=== PATIENT | female | born 1950 | race Caucasian/White ===

== ENCOUNTER 2020-06-28 12:53 | Outpatient (REF) | payer MEDICARE, SELFPAY ==
--- NOTE | 2020-06-28 | MM_ITS ---
EXAMINATION: BONE DENSITOMETRY CLINICAL INDICATION: Encounter for screening for osteoporosis. COMPARISON: Previous BD dated 06/21/2018 and baseline BD dated 12/06/2001. TECHNIQUE: Using a [employer] DXA System (software version: 13.1) manufactured by [employer], dual-energy x-ray absorptiometry was performed of the lumbar spine and left hip. The images are of good technical quality. Summary results are attached. FINDINGS: AP SPINE L1-L4: Current: BMD 0.977 g/cm2, Z-score -0.6, T-score -1.7, osteopenia, 6.0% increase from previous, 21.2% increase from baseline (<5% change is not significant). Prior: BMD 0.922 g/cm2. Baseline: BMD 0.806 g/cm2. LEFT FEMUR, NECK: Current: BMD 0.685 g/cm2, Z-score -1.2, T-score -2.5, osteoporosis. Prior: BMD 0.729 g/cm2. Baseline: BMD 0.719 g/cm2. LEFT FEMUR, TOTAL: Current: BMD 0.692 g/cm2, Z-score -1.5, T-score -2.5, osteoporosis, 11.2% decrease from previous, 5.1% decrease from baseline (<5% change is not significant). Prior: BMD 0.779 g/cm2. Baseline: BMD 0.729 g/cm2. IDENTIFIED RISK FACTORS: Parental hip fracture. Height loss. History of adult fracture. HISTORY OF FRACTURE: Clavicle. MEDICATIONS: Calcium or multivitamin. Vitamin D. MM/XR DEXA axial skeleton IMPRESSION: 1. DIAGNOSIS: Osteoporosis based on the lowest T-score value of -2.5 in the femoral neck and total femur applying World Health Organization criteria. 2. 10-YEAR FRACTURE RISK PREDICTION, FRAX: Major osteoporotic fracture (clinical spine, forearm, hip or shoulder) 33.9%. Hip fracture 9.8%. 3. Treatment Recommendations: NOF guidelines recommend consideration for treatment in postmenopausal women and men age 50 and older presenting with the following: -A hip or vertebral (clinical or morphometric) fracture. -T-score less than or equal to -2.5 at the femoral neck or spine after appropriate evaluation to exclude secondary causes. -Low bone mass at the hip or spine and a 10-year fracture probability by FRAX of greater than or equal to 3% for hip fracture or greater than or equal to 20% for major osteoporotic fracture based on the [place] adapted WHO algorithm. 4. Other Recommendations: All treatment decisions require clinical judgment and consideration of individual patient factors, including patient preferences, comorbidities, previous drug use, risk factors not captured in the FRAX model (e.g. frailty, falls, vitamin D deficiency, increased bone turnover, interval significant decline in bone density) and possible under or overestimation of fracture risk by FRAX. Additional medical evaluation for secondary cause of low bone mineral density may be appropriate. FUTURE SCAN RECOMMENDATION: People with diagnosed cases of osteoporosis or at high risk for fracture should have regular bone mineral density tests. For patients eligible for Medicare, routine testing is allowed once every 2 years. The testing frequency can be increased to one year for patients who have rapidly progressing disease, those who are receiving or discontinuing medical therapy to restore bone mass, or have additional risk factors.
== END 2020-06-28 12:54 | disposition home or self-care (01) ==
LOC: HO.MAMMO 12:53
PROVIDERS: PCP Internal Medicine; Visit Provider Internal Medicine
DX: M81.0 Age-related osteoporosis without current pathological fracture (principal)
CPT/HCPCS: 77080

== ENCOUNTER 2022-03-05 11:14 | Emergency (ER) | payer MEDICARE, SELFPAY ==
--- NOTE | ~2022-03-05 | MR_ITS ---
EXAMINATION: MR BRAIN WITHOUT CONTRAST CLINICAL INFORMATION: Woke with dizziness and nausea and vomiting. Question cerebellar stroke. COMPARISON: Head CT 03/05/2022. TECHNIQUE: Multiplanar, multisequence imaging of the brain was performed without intravenous contrast. FINDINGS: There is no acute infarction, mass, hemorrhage, or extra-axial collection. The ventricles, sulci, and basilar cisterns are normal in size and configuration. A few minimal nonspecific foci of T2/FLAIR hyperintensity are seen in the cerebral white matter. The flow voids of the major intracranial arteries appear intact. The bones and extracranial soft tissues are unremarkable. MR/MR head/brain wo con IMPRESSION: No acute infarct, mass lesion, intracranial hemorrhage, or evidence of hydrocephalus.
--- NOTE | ~2022-03-05 | CT_ITS ---
EXAMINATION: CTA OF THE HEAD AND NECK WITH CONTRAST CT SCAN OF THE HEAD WITHOUT CONTRAST CLINICAL INFORMATION: Dizziness. Question cerebellar stroke. COMPARISON: None. TECHNIQUE: Noncontrast imaging of the head acquired. Test bolus sequences followed by intravenous administration 70 mL of Omnipaque 350. Helical imaging was performed in the axial plane from the mediastinum to the skull vertex. Delayed postcontrast imaging of the head was also performed. The data was processed at the surgical scrub technologist's workstation for generation of MIP sequences. Three-dimensional volume rendered reformatted images were also generated at an offline 3-D workstation. Stenoses are assessed in accordance with NASCET criteria unless otherwise indicated. This CT examination was performed using dose optimization techniques as appropriate, variously including the following: *Automated exposure control *Adjustment of mA and/or kV according to patient size (this includes techniques or standardized protocols for targeted exams where dose is matched to indication/reason for exam; i.e. extremities or head) *Use of iterative reconstruction technique DLP: 2322 mGy-cm. FINDINGS: CT head: There is no evidence of acute intracranial hemorrhage or territorial infarction. There is no loss of painter to white matter differentiation. No abnormal mass effect or midline shift is seen. No extra-axial fluid collections are identified. There is no abnormal enhancement. The ventricles are normal in size. There is no abnormal attenuation within the brain parenchyma. The osseous structures and soft tissues are normal. The mastoid air cells and visualized portions of the paranasal sinuses are well aerated. CTA neck: The imaged aortic arch and origins of the great vessels are normal. The common carotid arteries are widely patent. The carotid bifurcations are normal. The cervical internal carotid arteries are patent with a mildly beaded appearance, possibly due to underlying fibromuscular dysplasia. The vertebral arteries opacify normally and are of normal caliber. Small enhancing 5 mm nodule visible in the right thyroid lobe. Moderate spondylosis with disc space narrowing and endplate spurring noted at the C5-C6 level. The imaged portions of the lungs are clear. CTA head: The intradural vertebral arteries and basilar artery are normal. The posterior cerebral arteries are widely patent. The internal carotid arteries are of normal caliber. The HANNAH and MCA vascular complexes bilaterally are normal. The venous sinuses opacify normally. CT/CT angio head neck stroke IMPRESSION: Normal CT angiogram of the head. Mildly beaded appearance of the cervical internal carotid arteries which may reflect underlying fibromuscular dysplasia. No vascular occlusion or significant stenosis. No dissection visible. No acute intracranial process. No abnormal enhancement. Venous sinuses opacify normally. Nonspecific 5 mm enhancing nodule in the right thyroid lobe which could be further evaluated with a nonemergent targeted sonographic study. Moderate spondylosis at the C5-C6 level. Exuberant right-sided facet arthropathy at C4-C5 with severe right foraminal narrowing. Imaging findings reported to RACHELE Saldana at 12:50 PM on 03/05/2022.
--- NOTE | ~2022-03-05 | CT_ITS ---
EXAMINATION: CT HEAD WITHOUT CONTRAST (STROKE PROTOCOL) CLINICAL INFORMATION: Stroke protocol. Sudden onset dizziness, nausea and vomiting. COMPARISON: None TECHNIQUE: Contiguous axial imaging was performed from the skull base to vertex without intravenous administration of contrast. This CT examination was performed using dose optimization techniques as appropriate, variously including the following: *Automated exposure control *Adjustment of mA and/or kV according to patient size (this includes techniques or standardized protocols for targeted exams where dose is matched to indication/reason for exam; i.e. extremities or head) *Use of iterative reconstruction technique DLP: 746.41 mGy-cm FINDINGS: The brain parenchyma has normal attenuation. The painter-white matter differentiation is well preserved. No evidence of an acute major vascular territory infarction. No intracranial hemorrhage, extra-axial fluid collection, focal mass effect or midline shift. The ventricles have normal size and configuration; no hydrocephalus. The brainstem and cerebellum have a normal appearance. The cerebellar tonsils are in normal position. The calvarium is intact. The visualized paranasal sinuses, mastoid air cells and middle ear cavities are well aerated. The orbits and globes are unremarkable. The temporomandibular joints are normal. CT/CT head for stroke IMPRESSION: No acute intracranial pathology. This critical result was discussed with RACHELE Alexander, at 12:05 PM on 03/05/2022. It was ascertained that the content and urgency of the report was understood at the time of direct communication.
[2022-03-05 11:26] VITALS: BP 117/53; PULSE 74
--- NOTE | 2022-03-05 11:34 | ECG_ITS ---
Test Reason : STROKEALERT Blood Pressure : / mmHG Vent. Rate : 067 BPM Atrial Rate : 067 BPM P-R Int : 186 ms QRS Dur : 064 ms QT Int : 404 ms P-R-T Axes : 047 -09 022 degrees QTc Int : 426 ms Normal sinus rhythm Minimal voltage criteria for LVH, may be normal variant ( R in aVL ) Borderline ECG When compared with ECG of 14-SEP-2003 12:17, No significant change was found Referred By: Coco Saldana Electronically Signed By:MADELIN HANSEN MD
--- NOTE | 2022-03-05 11:41 | ED.DIZZY ---
HPI - Dizziness General Chief Complaint: Nausea/Vomiting/Diarrhea Stated Complaint: Nausea,vomiting,dizziness Time Seen by Provider: 03/05/22 11:28 Source: patient and EMS Mode of arrival: EMS Limitations: no limitations History of Present Illness HPI Narrative: 71-year-old female with a past medical history of osteoporosis presenting to the ED via EMS with complaints of sudden onset of dizziness with associated nausea vomiting that started around 9:30-9:40am when she woke up this morning. She reports that she woke up at 09:30 and she hit the snooze button and at 09:40 when she went to turn over to hit the snooze plan for a 2nd time she felt very dizzy with associated nausea vomiting. She reports that room feels like it is going ?a 1000 mph?. She feels like everything is spinning around her. The towel over her eyes helps to light sensitivity. She reports associated generalized weakness. She reports she has never had these symptoms in the past. She denies a history of vertigo. She denies any recent falls or head trauma, headache, black or bloody emesis, chest pain or shortness of breath, dyspnea on exertion, orthopnea, palpitations, paresthesias, abdominal pain, back pain, joint pain, lower extremity edema or calf tenderness or any other symptoms complaints or concerns at this time. MD elicited complaint: dizziness Onset (ago): hour(s) (Since 09:30-9:40am) Timing: awoke with symptoms and constant Severity: severe Description: room spinning History of similar symptoms: No Exacerbating factors: keeping eyes open and other (Patient reports light sensitivity and turning of her head) Relieving factors: nothing Associated symptoms: nausea, vomiting and other (general weakness) Related Data Previous Rx's Medication Instructions Recorded meclizine 25 mg tablet 50 mg PO BID PRN dizziness #14 tabs 03/05/22 ondansetron 4 mg disintegrating 4 mg PO Q6H PRN nausea and 03/05/22 tablet vomiting #14 tabs Allergies Allergy/AdvReac Type Severity Reaction Status Date / Time No Known Allergies Allergy Unverified 05/13/20 15:06 [No Known Allergies*] Review of Systems Review of Systems: Constitutional : No Fever, No Chills, No Night Sweats, No Fatigue, No Malaise ENT/Mouth : No Ear Pain, No Nasal Congestion, No Sinus Pain, No sore throat, No Rhinorrhea Eyes: No Eye Pain, No Swelling, No Redness, No Foreign Body, No Discharge, No Vision Changes Cardiovascular : No Chest Pain, No SOB, No Dyspnea on Exertion, No Orthopnea, No Palpitations Respiratory : No Cough, No Sputum, No Wheezing, No Dyspnea Gastrointestinal : + Nausea, + Vomiting, No Diarrhea, No Constipation, No abdominal Pain, No Hematochezia, No Melena Genitourinary : No Dysuria, No Urinary Frequency, No Urinary Incontinence, No Urgency, No Flank Pain Musculoskeletal : No joint pain, No Myalgias Skin : No lacerations Neuro : + dizziness with general weakness, No Focal weakness, No Numbness, No Paresthesias, No Loss of Consciousness, No Headache Yes all other systems are reviewed and are negative [facility] Past Medical History Attestation statement: The following information was validated with the patient. Source: nursing notes reviewed Social History Social History Patient Tobacco Use Status: Never used Tobacco Use of substances other than those prescribed or required for medical reasons: No Advance Directives: Yes Advance Directives Information Provided: No Advance Directives on File: No Physical Exam Vital Signs: Vital Signs: Last Vital Signs Temp 98.4 F 03/05/22 15:19 Pulse 70 03/05/22 15:19 Resp 18 03/05/22 15:19 BP 156/61 H 03/05/22 15:19 Pulse Ox 100 03/05/22 15:19 O2 Del Method 03/05/22 15:19 BMI result Body Mass Index 34.0 Vital signs have been reviewed as normal and appeared to be correct. Blood pressure normal. Heart rate normal. Respiration rate normal. Temperature normal. Oxygen saturation normal. Appearance: Alert. Oriented X3. No acute distress. Head: Normal external exam. Normocephalic. Atraumatic. Able to rotate head bilaterally. Eyes: PERRLA. EOMI. No nystagmus noted. Conjunctiva and sclera normal. Eyelids normal. Corneal reflex normal. ENT: EAC normal. TM's Normal. Hearing normal. Pharynx normal. Uvula midline. tongue midline. Moist mucous membranes. No trismus noted. No drooling noted. No muffled voice noted. Patient noted to have bilateral right-sided nystagmus. Neck: Normal inspection. Neck supple. FROM. No adenopathy. Trachea midline. Thyroid Normal. No meningeal signs. No neck mass noted. CVS: Normal heart rate and rhythm. Heart sound normal. No murmurs noted. Pulses normal throughout. Respiratory: No respiratory distress. Painless inspiration. Breath sounds normal. No wheezes/rales/rhonchi noted. Chest nontender. No accessory muscle usage noted or decreased air movement noted. Abdomen: Soft and nontender. Bowel sounds normal in all 4 quadrants. No distention noted. No organomegaly noted. No visible injury noted. Back: Full range of motion noted. Skin: Skin warm and dry. Normal skin color. Normal skin turgor. No rashes/lesions/lacerations noted. Extremities: Extremities exhibit normal range of motion. Extremities nontender. Able to shrug shoulders bilaterally and keep up against resistance. Neuro: Oriented X 3. No motor deficit. No sensory deficit. Reflexes normal. Moving all extremities. No focal motor deficits. Cranial nerves II-XI intact bilaterally. Facial strength normal. Normal cognition. Speech normal. Strength 5/5 throughout. No pronator drift. No tremor noted. No fasciculations noted. No rigidity noted. Muscle tone normal throughout. No asterixis noted. [id number] test normal. Heel to bernardo test normal. Rapid alternating movement upper extremity normal. Rapid alternating movement lower extremity normal. Hand drop from overhead Misses face. NIHSS score 0. NIH Stroke Scale Internal: Initial- Upon Arrival Time: 11:35 Level of Consciousness: Alert Level of Consciousness Questions: Answers both questions correctly Level of Consciousness Commands: Performs both tasks correctly Best Gaze: Normal Visual: No visual loss Facial Palsy: Normal Motor Arm (Right): No drift Motor Arm (Left): No drift Motor Leg (Right): No drift Motor Leg (Left): No drift Limb Ataxia: Absent Sensory: Normal Best Language: No aphasia Dysarthia: Normal Extinction and Inattention: No abnormality Score: 0 Course Course Course Narrative: 11:35am - 71-year-old female c PMHx of osteoporosis presenting to the ED via EMS c complaints of sudden onset of dizziness c associated nausea vomiting that started around 9:30-9:40am when she woke up this morning. She reports that she woke up at 09:30 and she hit the snooze button and at 09:40 when she went to turn over to hit the snooze plan for a 2nd time she felt very dizzy with associated nausea vomiting. She reports that room feels like it is going ?a 1000 mph?. She feels like everything is spinning around her. The towel over her eyes helps to light sensitivity. She reports associated generalized weakness. She reports she has never had these symptoms in the past. She denies a history of vertigo. On exam pt is noted to be holding a towel over her eyes reports the room is spinning and she just wants to vomit although she is noted to have horizontal right-sided nystagmus to bilateral eyes. Otherwise negative Skew Test. Normal [id number] test. No pronator drift noted. No facial weakness. No extremity weakness noted. Patient is not a tPA candidate as she woke up with the symptoms and at this time there is no disabling symptoms. Plan: A line was placed patient was given 4 mg of Zofran and she will be going in for stroke protocol for CT scan of brain, CTA of head and neck with IV contrast, labs. Dr. Madsen at bedside agreeable with this plan and also examined patient. He also recommended ordering an MRI of brain without contrast for possible cerebellum stroke as well we will re-evaluate. Reevaluation(s) Reevaluation #1: 12:05 - CT head without contrast negative for any acute processes at this time. 12:52pm - CTA head/neck revealed chronic changes no acute processes noted. Awaiting labs at this time. 13:00pm - I was called from the MRI room and they reported that the MRIs down at this time they called [facility] to have it fix although they are unsure when it will be back up and running will continue to monitor patient's or she can have an MRI. Apparently the patient was a hard stick and the nurse at the try multiple times to obtain the labs. Therefore she sent in a PCT, PCT obtain labs and they are now arriving at this time. Reevaluation #2: - MRI of brain without contrast negative for acute infarct/mass lesions/intracranial hemorrhage or evidence of hydrocephalus at this time. Patient was able to ambulate to the bathroom without any difficulty. She reports she feels much better with the nausea medication the meclizine. Therefore patient most likely vertigo. Will DC home with medication for vertigo and instructions follow-up with PCP and to return if any new or worsening symptoms. Patient has been at bedside understand agree this plan. Time: 15:36 [facility] - Dizziness Medical Records Attestation: I reviewed the patient's medical records. Lab Data Attestation: I reviewed the patient's lab results. Result diagrams: 03/05/22 13:08 03/05/22 13:08 Labs: Lab Results 03/05/22 03/05/22 03/05/22 Range/Units 13:07 13:08 13:08 WBC 9.6 (4.8-10.8) X10*3/uL RBC 4.22 (4.20-5.50) X10*6/uL Hgb 12.7 (12.0-16.0) g/dl Hct 38.2 (37.0-47.0) % MCV 90.5 (80.0-98.0) fL MCH 30.1 (27.0-33.0) pg MCHC 33.2 (31.0-35.0) g/dl RDW 13.9 (11.0-16.0) % Plt Count 163 (160-400) X10*3/uL MPV 9.3 L (9.4-12.3) fL Immature Gran % (Auto) 0.7 H (0.0-0.4) % Neut % (Auto) 80.0 H (45-73) % Lymph % (Auto) 13.4 L (20-40) % Craig % (Auto) 5.3 (2-11) % Eos % (Auto) 0.3 (0-4) % Baso % (Auto) 0.3 (0-2) % Lymph # (Auto) 1.3 (1.2-4.9) X10*3/uL Craig # (Auto) 0.5 (0.1-1.2) X10*3/uL Eos # (Auto) 0.0 (0.0-0.4) X10*3/uL Baso # (Auto) 0.0 (0.0-0.2) X10*3/uL Abs Immat Gran (auto) 0.07 H (0.00-0.03) X10*3/uL Absolute Neuts (auto) 7.7 (2.0-8.3) x10*3/uL Absolute Nucleated RBC 0.000 (0.0-0.012) X10*3/uL Nucleated RBC % (auto) 0.0 (0.0-0.2) /100WBC PT (10.0-13.1) SEC INR (0.9-1.1) APTT (24.1-38.0) SEC Sodium 138 (135-145) mmol/L Potassium 3.9 (3.3-5.1) mmol/L Chloride 107 (96-108) mmol/L Carbon Dioxide 22 (22-29) mmol/L Anion Gap 13 (12-20) BUN 19 H (9-16) mg/dL Creatinine 0.90 (0.5-1.4) mg/dL Estim Creat Clear Calc 56.3 Estimated GFR > 60 Random Glucose 132 H (60-115) mg/dL Calcium 8.6 (8.4-10.2) mg/dL Magnesium 1.7 (1.6-2.6) mg/dL Total Bilirubin 0.7 (0.0-1.0) mg/dL Direct Bilirubin 0.3 (0.0-0.5) mg/dL AST 23 (5-31) U/L ALT 22 (0-31) U/L Alkaline Phosphatase 95 (39-117) U/L Total Creatine Kinase 62 (26-140) U/L Troponin I High Sens < 3.5 (<3.5-17.0) ng/L Total Protein 6.3 L (6.5-8.0) g/dL Albumin 3.9 (3.5-5.0) g/dL Urine Color Urine Appearance Urine pH (5.0-8.0) Ur Specific [place] (1.005-1.025) Urine Protein (NEG-TRACE) MG/DL Urine Glucose (UA) (NEG) MG/DL Urine Ketones (NEG) MG/DL Urine Blood (NEG) Urine Nitrite (NEG) Ur Leukocyte Esterase (NEG) Urine RBC (0) /HPF Urine WBC (0-4) /HPF Ur Squamous Epith Cells /LPF Urine Bacteria /LPF COVID-19 (DAVE) (Negative) COVID-19 Clin Com 03/05/22 03/05/22 03/05/22 Range/Units 13:08 13:54 13:59 WBC (4.8-10.8) X10*3/uL RBC (4.20-5.50) X10*6/uL Hgb (12.0-16.0) g/dl Hct (37.0-47.0) % MCV (80.0-98.0) fL MCH (27.0-33.0) pg MCHC (31.0-35.0) g/dl RDW (11.0-16.0) % Plt Count (160-400) X10*3/uL MPV (9.4-12.3) fL Immature Gran % (Auto) (0.0-0.4) % Neut % (Auto) (45-73) % Lymph % (Auto) (20-40) % Craig % (Auto) (2-11) % Eos % (Auto) (0-4) % Baso % (Auto) (0-2) % Lymph # (Auto) (1.2-4.9) X10*3/uL Craig # (Auto) (0.1-1.2) X10*3/uL Eos # (Auto) (0.0-0.4) X10*3/uL Baso # (Auto) (0.0-0.2) X10*3/uL Abs Immat Gran (auto) (0.00-0.03) X10*3/uL Absolute Neuts (auto) (2.0-8.3) x10*3/uL Absolute Nucleated RBC (0.0-0.012) X10*3/uL Nucleated RBC % (auto) (0.0-0.2) /100WBC PT 11.7 (10.0-13.1) SEC INR 1.0 (0.9-1.1) APTT 26.5 (24.1-38.0) SEC Sodium (135-145) mmol/L Potassium (3.3-5.1) mmol/L Chloride (96-108) mmol/L Carbon Dioxide (22-29) mmol/L Anion Gap (12-20) BUN (9-16) mg/dL Creatinine (0.5-1.4) mg/dL Estim Creat Clear Calc Estimated GFR Random Glucose (60-115) mg/dL Calcium (8.4-10.2) mg/dL Magnesium (1.6-2.6) mg/dL Total Bilirubin (0.0-1.0) mg/dL Direct Bilirubin (0.0-0.5) mg/dL AST (5-31) U/L ALT (0-31) U/L Alkaline Phosphatase (39-117) U/L Total Creatine Kinase (26-140) U/L Troponin I High Sens (<3.5-17.0) ng/L Total Protein (6.5-8.0) g/dL Albumin (3.5-5.0) g/dL Urine Color YELLOW Urine Appearance CLEAR Urine pH 7.0 (5.0-8.0) Ur Specific [place] <= 1.005 (1.005-1.025) Urine Protein NEG (NEG-TRACE) MG/DL Urine Glucose (UA) NEG (NEG) MG/DL Urine Ketones NEG (NEG) MG/DL Urine Blood TRACE (NEG) Urine Nitrite NEG (NEG) Ur Leukocyte Esterase NEG (NEG) Urine RBC 1-4 (0) /HPF Urine WBC 0 (0-4) /HPF Ur Squamous Epith Cells TRACE /LPF Urine Bacteria NONE /LPF COVID-19 (DAVE) Negative (Negative) COVID-19 Clin Com See Note Imaging Data CT scan of brain without contrast: Attestation: I personally reviewed and interpreted this imaging study as follows: Radiologist's impression: FINDINGS: The brain parenchyma has normal attenuation. The painter-white matter differentiation is well preserved. No evidence of an acute major vascular territory infarction. No intracranial hemorrhage, extra-axial fluid collection, focal mass effect or midline shift. The ventricles have normal size and configuration; no hydrocephalus. The brainstem and cerebellum have a normal appearance. The cerebellar tonsils are in normal position. The calvarium is intact. The visualized paranasal sinuses, mastoid air cells and middle ear cavities are well aerated. The orbits and globes are unremarkable. The temporomandibular joints are normal. CT/CT head for stroke IMPRESSION: No acute intracranial pathology. ? ? This critical result was discussed with RACHELE Alexander, at 12:05 PM on 03/05/2022. It was ascertained that the content and urgency of the report was understood at the time of direct communication. CTA of head/neck: Attestation: I personally reviewed and interpreted this imaging study as follows: Radiologist's impression: FINDINGS: CT head: There is no evidence of acute intracranial hemorrhage or territorial infarction. There is no loss of painter to white matter differentiation. No abnormal mass effect or midline shift is seen. No extra-axial fluid collections are identified. There is no abnormal enhancement. The ventricles are normal in size. There is no abnormal attenuation within the brain parenchyma. The osseous structures and soft tissues are normal. The mastoid air cells and visualized portions of the paranasal sinuses are well aerated. ? CTA neck: The imaged aortic arch and origins of the great vessels are normal. The common carotid arteries are widely patent. The carotid bifurcations are normal. The cervical internal carotid arteries are patent with a mildly beaded appearance, possibly due to underlying fibromuscular dysplasia. The vertebral arteries opacify normally and are of normal caliber. Small enhancing 5 mm nodule visible in the right thyroid lobe. Moderate spondylosis with disc space narrowing and endplate spurring noted at the C5-C6 level. The imaged portions of the lungs are clear. CTA head: The intradural vertebral arteries and basilar artery are normal. The posterior cerebral arteries are widely patent. The internal carotid arteries are of normal caliber. The HANNAH and MCA vascular complexes bilaterally are normal. The venous sinuses opacify normally. CT/CT angio head? neck stroke IMPRESSION: ? Normal CT angiogram of the head. ? Mildly beaded appearance of the cervical internal carotid arteries which may reflect underlying fibromuscular dysplasia. No vascular occlusion or significant stenosis. No dissection visible. ? No acute intracranial process. No abnormal enhancement. Venous sinuses opacify normally. ? Nonspecific 5 mm enhancing nodule in the right thyroid lobe which could be further evaluated with a nonemergent targeted sonographic study. ? Moderate spondylosis at the C5-C6 level. Exuberant right-sided facet arthropathy at C4-C5 with severe right foraminal narrowing. ? Imaging findings reported to RACHELE Saldana at 12:50 PM on 03/05/2022. ? MRI of brain without contrast: Attestation: I personally reviewed and interpreted this imaging study as follows: Radiologist's impression: FINDINGS: There is no acute infarction, mass, hemorrhage, or extra-axial collection.? The ventricles, sulci, and basilar cisterns are normal in size and configuration. A few minimal nonspecific foci of T2/FLAIR hyperintensity are seen in the cerebral white matter. The flow voids of the major intracranial arteries appear intact. The bones and extracranial soft tissues are unremarkable. MR/MR head/brain wo con IMPRESSION: No acute infarct, mass lesion, intracranial hemorrhage, or evidence of hydrocephalus. ECG Data Attestation: I personally reviewed and interpreted this ECG as follows: ECG interpretation date: 03/05/22 ECG interpretation time: 15:18 Interpretation: Normal sinus rhythm with ventricular rate of 67 with LVH otherwise no acute ischemic change are noted. Similar compared to prior EKG 02/13/2004 Critical Care Time Critical Care Time Critical Care Time: Yes Total Critical Care Time: 60 Attestation: I personally attest to this time spent taking care of the patient Discharge Plan Discharge Clinical Impression: Nausea & vomiting, Dizziness, Vertigo Patient Disposition: Home, Self-Care Instructions: Vertigo (ED) Prescriptions: New ondansetron 4 mg tablet,disintegrating 4 mg PO Q6H PRN (Reason: nausea and vomiting) Qty: 14 0RF meclizine 25 mg tablet 50 mg PO BID PRN (Reason: dizziness) Qty: 14 0RF Referrals: Alfredo Kearns MD [Primary Care Provider] - 2 days Print Language: Cameroonian
[2022-03-05 11:56] VITALS: BMI 34.0
[2022-03-05] MEDS: ondansetron HCL 4 MG/2 ML VIAL IVPUSH (12:00)
[2022-03-05] MEDS: iohexoL 350 MG/ML 100 ML INFUS..BTL IV (12:00)
[2022-03-05] MEDS: Metoclopramide HCl 10 MG/2 ML VIAL IVPUSH (12:21)
[2022-03-05] MEDS: diazePAM 10 MG/2 ML CARTRIDGE 2.5 MG IVPUSH (12:35)
[2022-03-05] MEDS: 0.9 % Sodium Chloride 1,000 ML 999 ML IV (12:45)
[2022-03-05 13:16] LABS: MANUAL DIFF FLAG NO
[2022-03-05 13:18] LABS: Basophils Percent Auto 0.3 % (0-2); Eosinophils Percent Auto 0.3 % (0-4); Hematocrit 38.2 % (37.0-47.0); Hemoglobin 12.7 g/dl (12.0-16.0); Imm Gran Abs Auto 0.07 X10*3/uL (0.00-0.03); Imm Gran Pct Auto 0.7 % (0.0-0.4); Lymphocytes Absolute Auto 1.3 X10*3/uL (1.2-4.9); Lymphocytes Percent Auto 13.4 % (20-40); Mean Corpuscular HGB Conc 33.2 g/dl (31.0-35.0); Mean Corpuscular Hemoglobin 30.1 pg (27.0-33.0); Mean Corpuscular Volume 90.5 fL (80.0-98.0); Mean Platelet Volume 9.3 fL (9.4-12.3); Monocytes Absolute Auto 0.5 X10*3/uL (0.1-1.2); Monocytes Percent Auto 5.3 % (2-11); Neutrophils Absolute Auto 7.7 x10*3/uL (2.0-8.3); Platelet Count 163 X10*3/uL (160-400); Red Blood Count 4.22 X10*6/uL (4.20-5.50); Red Cell Distribution Width 13.9 % (11.0-16.0); White Blood Count 9.6 X10*3/uL (4.8-10.8)
[2022-03-05 13:23] LABS: Prothrombin Time 11.7 SEC (10.0-13.1)
[2022-03-05 13:25] LABS: Partial Thromboplastin Time 26.5 SEC (24.1-38.0)
[2022-03-05 13:35] LABS: Alanine Aminotransferase 22 U/L (0-31); Albumin Level 3.9 g/dL (3.5-5.0); Alkaline Phosphatase 95 U/L (39-117); Anion Gap 13 (12-20); Aspartate Amino Transferase 23 U/L (5-31); Bilirubin Direct 0.3 mg/dL (0.0-0.5); Bilirubin Total 0.7 mg/dL (0.0-1.0); Blood Urea Nitrogen 19 mg/dL (9-16); Calcium 8.6 mg/dL (8.4-10.2); Carbon Dioxide 22 mmol/L (22-29); Chloride 107 mmol/L (96-108); Creatinine Clr Calc Pharmacy 56.3; Estimated Glomerular Filt Rate > 60; Glucose Random 132 mg/dL (60-115); Magnesium 1.7 mg/dL (1.6-2.6); Potassium 3.9 mmol/L (3.3-5.1); Sodium 138 mmol/L (135-145); Total Protein 6.3 g/dL (6.5-8.0)
[2022-03-05 13:40] LABS: Troponin-I High Sensitivity < 3.5 ng/L (<3.5-17.0)
[2022-03-05 13:41] VITALS: BP 135/62; PULSE 66; RESP 18; TEMP 36.9; O2SAT 100; BMI 34.0
[2022-03-05 13:47] LABS: Stroke Lab Use COMPLETE
[2022-03-05 14:05] LABS: Appearance Urine CLEAR; Color Urine YELLOW; Glucose Urine UA NEG (NEG); Leukocyte Esterase Urine NEG (NEG); Nitrite Urine NEG (NEG); Specific Gravity - Urine <= 1.005 (1.005-1.025); UACC Culture Trigger NO; Urine Blood TRACE (NEG); Urine Ketones NEG (NEG); Urine Protein NEG (NEG-TRACE)
[2022-03-05 14:14] LABS: Squamous Epithelial Cell Urine TRACE /LPF; WBC Urine 0 /HPF (0-4)
[2022-03-05 14:20] LABS: COVID-19 Test Negative (Negative); IDNOW Serial# 16C4AD1C
[2022-03-05] MEDS: Meclizine HCl 25 MG TABLET 50 MG PO (14:21)
[2022-03-05 15:19] VITALS: BP 156/61; PULSE 70; RESP 18; TEMP 36.9; O2SAT 100
== END 2022-03-05 16:06 | disposition home or self-care (01) ==
PROVIDERS: Physician Assistant Medical; Emergency Provider Emergency Medicine; PCP Internal Medicine
DX: R42 Dizziness and giddiness (principal); R11.2 Nausea with vomiting, unspecified; R53.1 Weakness; H55.00 Unspecified nystagmus; Z20.822 Contact with and (suspected) exposure to COVID-19
CPT/HCPCS: 36415; 70450; 70496; 70498; 70551; 80048; 80076; 81001; 82550; 83735; 84484; 85025; 85610; 85730; 87635; 93005; 96361; 96374; 96375; 99285; J2405; J2765; J3360; Q9967

== ENCOUNTER 2022-03-10 10:30 | Outpatient (REF) | payer MEDICARE, SELFPAY ==
[2022-03-10 11:00] LABS: MANUAL DIFF FLAG NO
[2022-03-10 12:21] LABS: Basophils Absolute Auto 0.1 X10*3/uL (0.0-0.2); Basophils Percent Auto 0.8 % (0-2); Eosinophils Absolute Auto 0.1 X10*3/uL (0.0-0.4); Hematocrit 43.3 % (37.0-47.0); Imm Gran Abs Auto 0.02 X10*3/uL (0.00-0.03); Imm Gran Pct Auto 0.3 % (0.0-0.4); Lymphocytes Absolute Auto 2.5 X10*3/uL (1.2-4.9); Lymphocytes Percent Auto 39.1 % (20-40); Mean Corpuscular HGB Conc 32.3 g/dl (31.0-35.0); Mean Corpuscular Volume 92.7 fL (80.0-98.0); Mean Platelet Volume 10.1 fL (9.4-12.3); Monocytes Absolute Auto 0.6 X10*3/uL (0.1-1.2); Monocytes Percent Auto 9.4 % (2-11); Neutrophils Absolute Auto 3.2 x10*3/uL (2.0-8.3); Neutrophils Percent Auto 48.4 % (45-73); Platelet Count 186 X10*3/uL (160-400); Red Blood Count 4.67 X10*6/uL (4.20-5.50); White Blood Count 6.5 X10*3/uL (4.8-10.8)
[2022-03-10 12:46] LABS: Alanine Aminotransferase 23 U/L (0-31); Albumin Level 4.3 g/dL (3.5-5.0); Alkaline Phosphatase 106 U/L (39-117); Anion Gap 16 (12-20); Aspartate Amino Transferase 24 U/L (5-31); Bilirubin Total 0.6 mg/dL (0.0-1.0); Blood Urea Nitrogen 20 mg/dL (9-16); Calcium 8.9 mg/dL (8.4-10.2); Carbon Dioxide 22 mmol/L (22-29); Chloride 105 mmol/L (96-108); Cholesterol 193 mg/dL; Estimated Glomerular Filt Rate 60; Glucose Fasting 87 mg/dL (60-99); HDL Cholesterol 58 mg/dL; LDL Cholesterol Calculated 110 mg/dl; Potassium 4.6 mmol/L (3.3-5.1); Sodium 138 mmol/L (135-145); Total Protein 7.3 g/dL (6.5-8.0); Triglycerides 128 mg/dL
[2022-03-10 13:02] LABS: Appearance Urine CLEAR; Color Urine YELLOW; Glucose Urine UA NEG (NEG); Leukocyte Esterase Urine NEG (NEG); Nitrite Urine NEG (NEG); PH 6.5 (5.0-8.0); Urine Blood TRACE (NEG); Urine Ketones NEG (NEG); Urine Protein NEG (NEG-TRACE)
[2022-03-10 13:07] LABS: Vitamin D 25-OH Total 55.1 ng/mL (>30)
[2022-03-10 13:44] LABS: Renal Epithelial Cells Urine 1+ /LPF; Squamous Epithelial Cell Urine 3+ /LPF; WBC Urine 0-2 /HPF (0-4)
== END 2022-03-10 10:31 | disposition home or self-care (01) ==
LOC: HO.LAB 10:30
PROVIDERS: PCP Internal Medicine; Visit Provider Internal Medicine
DX: E78.00 Pure hypercholesterolemia, unspecified (principal); R31.9 Hematuria, unspecified; D72.820 Lymphocytosis (symptomatic); E55.9 Vitamin D deficiency, unspecified
CPT/HCPCS: 36415; 80053; 80061; 81001; 81003; 82306; 85025

== ENCOUNTER 2022-04-21 15:40 | Outpatient (REF) | payer MEDICARE, SELFPAY ==
--- NOTE | ~2022-04-21 | US_ITS ---
EXAMINATION: US THYROID CLINICAL INFORMATION: Thyroid nodule. COMPARISON: None TECHNIQUE: Linear transducer grayscale and color Doppler examination with attention to the region of the thyroid. FINDINGS: SIZE: Measurements of the thyroid lobes and nodules are given in sagittal, anteroposterior and transverse dimensions respectively. Right Thyroid Lobe: 4.3 x 1.0 x 1.4 cm, volume 3.1 mL. Parenchyma: The gland echotexture is heterogeneous. Thyroid vascularity is normal. Left Thyroid Lobe: 3.3 x 0.7 x 1.3 cm, volume 1.6 mL. Parenchyma: The gland echotexture is heterogeneous. Thyroid vascularity is normal. Isthmus: 0.3 cm in maximum AP dimension. Estimated total number of nodules greater than or equal to 1 cm: 0. Community Health Program Coordinator nodules are described as follows: 1. Location: Right mid/inferior. Size: 0.8 x 0.4 x 0.5 cm, volume 0.1 mL. Nodule characteristics: Composition: Solid (2). Echogenicity: Hypoechoic (2). Shape: Not taller than wide (0). Margins: Smooth (0). Echogenic Foci: None (0). ACR TI-RADS total points: 4 ACR TI-RADS category: 4 2. Location: Right mid. Size: 0.3 x 0.2 x 0.3 cm, volume 0.01 mL. Nodule characteristics: Composition: Spongiform (0). ACR TI-RADS total points: 0 ACR TI-RADS category: 1 NODES: No lymphadenopathy is seen in the tissue surrounding the thyroid gland. US/US thyroid IMPRESSION: Heterogeneous which can be seen in the setting of thyroiditis. A 0.8 cm TR 4 right thyroid nodule and a 0.3 cm TR 1 thyroid nodule neither of which meet criteria for follow-up imaging. ACR TI-RADS RECOMMENDATION REFERENCE: Ultrasound-guided fine-needle aspiration, followup ultrasound, no further follow up. * TR1 (0 point) and TR 2 (2 points): No FNA or follow up * TR3 (3 points): FNA if more than or equal to 2.5 cm in maximum dimension, followup ultrasound in 1, 3 and 5 years if 1.5 to 2.4 cm in maximum dimension. * TR4 (4-6 points): FNA if more than or equal to 1.5 cm in maximum dimension, followup ultrasound in 1, 2, 3 and 5 years if 1 to 1.4 cm in maximum dimension. * TR5 (more than or equal to 7 points): FNA if more than or equal to 1 cm in maximum dimension, followup ultrasound every year for 5 years if 0.5 to 0.9 cm in maximum dimension. * TR3, TR4 or TR5 nodules that are below the size threshold for follow up receive no follow up.
== END 2022-04-21 15:41 | disposition home or self-care (01) ==
LOC: HO.US 15:40
PROVIDERS: Visit Provider Internal Medicine
DX: E04.1 Nontoxic single thyroid nodule (principal)
CPT/HCPCS: 76536

== ENCOUNTER 2022-06-30 12:50 | Outpatient (REF) | payer MEDICARE, SELFPAY ==
--- NOTE | ~2022-06-30 | MM_ITS ---
EXAMINATION: BONE DENSITOMETRY CLINICAL INDICATION: Menopause. COMPARISON: Previous BD dated 06/28/2020 and baseline BD dated 12/06/2001. TECHNIQUE: Using a [employer] DXA System (software version: 13.1) manufactured by [employer], dual-energy x-ray absorptiometry was performed of the lumbar spine and left hip. The images are of good technical quality. Summary results are attached. FINDINGS: AP SPINE L1-L4: Current: BMD 1.003 g/cm2, Z-score -0.3, T-score -1.5, osteopenia, 2.7% increase from previous, 24.4% increase from baseline (<5% change is not significant). Prior: BMD 0.977 g/cm2. Baseline: BMD 0.806 g/cm2. LEFT FEMUR, NECK: Current: BMD 0.802 g/cm2, Z-score -0.3, T-score -1.7, osteopenia. Prior: BMD 0.685 g/cm2. Baseline: BMD 0.719 g/cm2. LEFT FEMUR, TOTAL: Current: BMD 0.839 g/cm2, Z-score -0.2, T-score -1.3, osteopenia, 21.2% increase from previous, 15.1% increase from baseline (<5% change is not significant). Prior: BMD 0.692 g/cm2. Baseline: BMD 0.729 g/cm2. IDENTIFIED RISK FACTORS: Menopause, history of fracture (adult). HISTORY OF FRACTURE: Wrist. Clavicle. MEDICATIONS: Bisphosphonates. Calcium supplements or multivitamin, vitamin D. MM/XR DEXA axial skeleton IMPRESSION: 1. DIAGNOSIS: Osteopenia based on the lowest T-score value of -1.7 in the femoral neck applying World Health Organization criteria. 2. 10-YEAR FRACTURE RISK PREDICTION, FRAX: Major osteoporotic fracture (clinical spine, forearm, hip or shoulder) 24.2%. Hip fracture 6.4%. 3. Treatment Recommendations: NOF guidelines recommend consideration for treatment in postmenopausal women and men age 50 and older presenting with the following: -A hip or vertebral (clinical or morphometric) fracture. -T-score less than or equal to -2.5 at the femoral neck or spine after appropriate evaluation to exclude secondary causes. -Low bone mass at the hip or spine and a 10-year fracture probability by FRAX of greater than or equal to 3% for hip fracture or greater than or equal to 20% for major osteoporotic fracture based on the [place] adapted WHO algorithm. 4. Other Recommendations: All treatment decisions require clinical judgment and consideration of individual patient factors, including patient preferences, comorbidities, previous drug use, risk factors not captured in the FRAX model (e.g. frailty, falls, vitamin D deficiency, increased bone turnover, interval significant decline in bone density) and possible under or overestimation of fracture risk by FRAX. Additional medical evaluation for secondary cause of low bone mineral density may be appropriate. FUTURE SCAN RECOMMENDATION: People with diagnosed cases of osteoporosis or at high risk for fracture should have regular bone mineral density tests. For patients eligible for Medicare, routine testing is allowed once every 2 years. The testing frequency can be increased to one year for patients who have rapidly progressing disease, those who are receiving or discontinuing medical therapy to restore bone mass, or have additional risk factors.
== END 2022-06-30 12:51 | disposition home or self-care (01) ==
LOC: HO.MAMMO 12:50
PROVIDERS: PCP Internal Medicine; Visit Provider Internal Medicine Endocrinology, Diabetes & Metabolism
DX: Z13.820 Encounter for screening for osteoporosis (principal); Z78.0 Asymptomatic menopausal state; M81.0 Age-related osteoporosis without current pathological fracture
CPT/HCPCS: 77080

== ENCOUNTER 2022-09-19 10:08 | Outpatient (REF) | payer MEDICARE, SELFPAY ==
[2022-09-19 11:42] LABS: Alanine Aminotransferase 17 U/L (0-31); Albumin Level 4.1 g/dL (3.5-5.0); Alkaline Phosphatase 95 U/L (39-117); Aspartate Amino Transferase 22 U/L (5-31); Bilirubin Total 0.5 mg/dL (0.0-1.0); Cholesterol 153 mg/dL; HDL Cholesterol 51 mg/dL; LDL Cholesterol Calculated 80 mg/dl; Total Protein 6.6 g/dL (6.5-8.0); Triglycerides 113 mg/dL
[2022-09-19 14:08] LABS: Reflex LDLD? No
[2022-09-19 14:19] LABS: Bilirubin Direct 0.2 mg/dL (0.0-0.5)
== END 2022-09-19 10:09 | disposition home or self-care (01) ==
LOC: HO.LAB 10:08
PROVIDERS: PCP Internal Medicine; Visit Provider Internal Medicine
DX: E78.00 Pure hypercholesterolemia, unspecified (principal)
CPT/HCPCS: 36415; 80061; 80076

== ENCOUNTER 2023-03-12 09:59 | Outpatient (REF) | payer MEDICARE, SELFPAY ==
[2023-03-12 10:26] LABS: MANUAL DIFF FLAG NO
[2023-03-12 11:31] LABS: Basophils Percent Auto 0.4 % (0-2); Eosinophils Absolute Auto 0.2 X10*3/uL (0.0-0.4); Eosinophils Percent Auto 2.2 % (0-4); Hemoglobin 13.5 g/dl (12.0-16.0); Imm Gran Abs Auto 0.01 X10*3/uL (0.00-0.03); Imm Gran Pct Auto 0.1 % (0.0-0.4); Lymphocytes Absolute Auto 2.9 X10*3/uL (1.2-4.9); Lymphocytes Percent Auto 42.7 % (20-40); Mean Corpuscular HGB Conc 32.1 g/dl (31.0-35.0); Mean Corpuscular Hemoglobin 29.7 pg (27.0-33.0); Mean Corpuscular Volume 92.5 fL (80.0-98.0); Mean Platelet Volume 9.7 fL (9.4-12.3); Monocytes Absolute Auto 0.6 X10*3/uL (0.1-1.2); Monocytes Percent Auto 9.5 % (2-11); Neutrophils Percent Auto 45.1 % (45-73); Platelet Count 200 X10*3/uL (160-400); Red Blood Count 4.54 X10*6/uL (4.20-5.50); Red Cell Distribution Width 13.6 % (11.0-16.0); White Blood Count 6.7 X10*3/uL (4.8-10.8)
[2023-03-12 11:57] LABS: Appearance Urine Clear; Color Urine Yellow; Glucose Urine UA Negative (Negative); Leukocyte Esterase Urine Trace (Negative); Nitrite Urine Negative (Negative); UMIC TRIGGER UACC YES; Urine Blood Negative (Negative); Urine Ketones Negative (Negative); Urine Protein Negative (Neg-Trace)
[2023-03-12 11:59] LABS: Bacteria Urine Trace (None Seen); Hyaline Casts Urine 0-2 /LPF (0-2); RBC Urine 0-2 /HPF (0-2); WBC Urine 0-5 /HPF (0-5)
[2023-03-12 13:03] LABS: Alanine Aminotransferase 20 U/L (0-31); Albumin Level 4.1 g/dL (3.5-5.0); Alkaline Phosphatase 94 U/L (39-117); Anion Gap 13 (12-20); Aspartate Amino Transferase 21 U/L (5-31); Bilirubin Total 0.6 mg/dL (0.0-1.0); Blood Urea Nitrogen 21 mg/dL (9-16); Calcium 9.8 mg/dL (8.4-10.2); Carbon Dioxide 27 mmol/L (22-29); Chloride 104 mmol/L (96-108); Cholesterol 175 mg/dL; Estimated Glomerular Filt Rate 56; Glucose Random 90 mg/dL (60-115); HDL Cholesterol 53 mg/dL; LDL Cholesterol Calculated 94 mg/dl; Potassium 4.4 mmol/L (3.3-5.1); Sodium 140 mmol/L (135-145); Total Protein 7.1 g/dL (6.5-8.0); Triglycerides 143 mg/dL
[2023-03-12 13:19] LABS: Vitamin D 25-OH Total 62.3 ng/mL (>30)
== END 2023-03-12 10:00 | disposition home or self-care (01) ==
LOC: HO.LAB 09:59
PROVIDERS: PCP Internal Medicine; Visit Provider Internal Medicine
DX: E55.9 Vitamin D deficiency, unspecified (principal); E78.00 Pure hypercholesterolemia, unspecified; I10 Essential (primary) hypertension
CPT/HCPCS: 36415; 80053; 80061; 81001; 82306; 85025

== ENCOUNTER 2023-04-25 13:31 | Outpatient (AMB) | payer MEDICARE, SELFPAY ==
--- NOTE | 2023-04-25 13:34 | A.OFFVIS_ITS ---
Intake Vital Signs 04/25/23 13:35 Height 5 ft 1 in Weight 178 lb BMI 33.6 BP 130/70 Blood Pressure Location Lt brachial Position Sitting Pulse 80 Pulse Source Pulse Oximeter Pulse Oximetry (%) 94 Oxygen Delivery Method Room Air Intake Visit Reasons: Snoring Prototype Engineer Manager Required: No Instrument And Controls Technician: Instrument And Controls Technician offered & declined Accompanied by: Self / Same As Patient Allergies No Known Allergies [No Known Allergies*] Allergy (Unverified 05/13/20 15:06) Medication List - Last Reconciled 04/25/23 by Ankita Obregon LPN aspirin (Adult Low Dose Aspirin) 81 mg PO DAILY atorvastatin 20 mg PO DAILY cholecalciferol (vitamin D3) 25 mcg orally 3x per week; meclizine 50 mg (2 x 25 mg) PO BID PRN multivitamin 1 tab PO DAILY omeprazole 20 mg PO DAILY ondansetron 4 mg PO Q6H PRN HPI Snoring HPI Details Sarah is a very pleasant 73 year old female, never smoker, with underlying hypertension. She was referred by PCP for pulmonary evaluation for possible sleep apnea. Her has noticed snoring that has become more frequent over the past year. She reports sleeping upright prior but has been laying flat more recently. She denies any known history of sleep apnea, PND or excessive daytime fatigue although notes to fall asleep easily at times. She denies any personal history of lung conditions. She reports mother with Sjogren's, personal workup negative. She denies any cardiac conditions. [facility] Social History Patient Tobacco Use Status: Never used Tobacco Review of Systems Const Denies chills, Denies excessive sweating, Denies fever(s), Denies headache(s) and Denies night sweats Eyes Denies dry eyes, Denies irritation and Denies itchy eyes ENT Reports Normal hearing present, Denies headache(s), Denies nasal congestion, Denies nasal discharge, Denies post nasal drip and Denies sore throat Card Denies chest pain, Denies chest pain at rest, Denies chest pain with activity, Denies claudication, Denies leg edema, Denies dyspnea, Denies dyspnea on exertion, Denies orthopnea and Denies paroxysmal nocturnal dyspnea Resp Denies chest congestion, Denies cough, Denies excessive phlegm production, Denies pain on inspiration, Denies pain with cough, Denies dyspnea, Denies dyspnea on exertion, Denies stridor and Denies wheezing Musc Denies myalgias Neuro Reports Normal hearing present and Denies headache(s) Endo Denies excessive sweating Darvin/Lymph Denies lymphadenopathy Aller/Immun Denies itchy eyes, Denies seasonal rhinorrhea and Denies wheezing Physical Exam Vital Signs: Last Vital Signs Pulse 80 04/25/23 13:35 BP 130/70 04/25/23 13:35 Pulse Ox 94 04/25/23 13:35 Oxygen Delivery Method Room Air 04/25/23 13:35 BMI result Body Mass Index 33.6 Const General: cooperative, healthy appearing, comfortable, no acute distress, well developed and alert Nutritional Appearance: obese Orientation/consciousness: patient oriented x3 Limitations: no limitations HEENT Head: Yes normal to inspection, Yes normocephalic and Yes atraumatic Ears: hearing grossly normal bilaterally and external ears normal Eyes General: appearance normal, both eyes and all related structures Eyelids: Yes eyelids normal Sclerae: sclerae normal EOM: EOMs intact bilaterally Neck Neck: Yes normal visual inspection and Yes no lymphadenopathy Lymphatic: no lymphadenopathy noted Chest Chest palpation & inspection: normal inspection of the chest Resp Effort & Inspection: normal respiratory effort, able to speak in complete sentences, no audible wheezes, no cough, no stridor, not tachypneic, no tripod positioning and no use of accessory muscles Auscultation: clear to auscultation bilaterally Cardio Jugular venous distension: no JVD Rate: regular rate Rhythm: regular rhythm Skin Other: warm, dry General skin exam: no rashes or lesions noted Neuro General: patient oriented x3 Cranial nerves: Yes Normal hearing present Cognition (Neuro): normal cognition Gait exam (Neuro): Normal gait present Extrem General: Yes normal to inspection, Yes capillary refill normal, Yes no clubbing, cyanosis or edema and Yes no pedal edema Psych Appearance: grossly normal and well kempt Speech and movement: Normal speech and movement present and Clear speech present Affect: normal affect Attitude: cooperative Thought process: Normal thought process present Thought content: Normal thought content present Insight: Good insight present (Psych) Judgement: Good judgement present (Psych) Assessment & Plan Assessment & Plan (1) Loud snoring: Code(s): R06.83 - Snoring (2) Class 1 obesity with body mass index (BMI) of 33.0 to 33.9 in adult: Code(s): E66.9 - Obesity, unspecified; Z68.33 - Body mass index [BMI] 33.0-33.9, adult Plan PCP referred patient with concerns of obstructive sleep apnea given history of snoring, obesity and underlying hypertension. Will send patient for home sleep study and follow up to review results. All questions were answered and patient is in agreement of plan. Orders: Orders RT home sleep study Today E66.9 - Obesity, unspecified, R06.83 - Snoring, Z68.33 - Body mass index [BMI] 33.0-33.9, adult Coding Level of Care Code New Pt Level 3 (65799) Diagnoses Loud snoring R06.83 Class 1 obesity with body mass index (BMI) of 33.0 to 33.9 in adult E66.9; Z68.33
[2023-04-25 13:35] VITALS: BP 130/70; PULSE 80; O2SAT 94; BMI 33.6
== END 2023-04-25 14:21 | disposition home or self-care (01) ==
PROVIDERS: PCP Internal Medicine; Referring Provider Internal Medicine; Visit Provider Nurse Practitioner Family
DX: R06.83 Snoring (principal); E66.9 Obesity, unspecified; Z68.33 Body mass index [BMI] 33.0-33.9, adult
CPT/HCPCS: 99203

== ENCOUNTER → 2023-04-25 13:31 | Outpatient (BNVA) | payer MEDICARE, SELFPAY | PROVIDERS: PCP Internal Medicine; Visit Provider Nurse Practitioner Family | DX: R06.83 Snoring (principal); E66.9 Obesity, unspecified; Z68.33 Body mass index [BMI] 33.0-33.9, adult | CPT/HCPCS: 99202 ==

== ENCOUNTER → 2023-06-11 13:00 | Outpatient (REF) | payer MEDICARE, SELFPAY | LOC: HO.SL 13:00 | PROVIDERS: PCP Internal Medicine; Visit Provider Nurse Practitioner Family | DX: G47.33 Obstructive sleep apnea (adult) (pediatric) (principal); R06.83 Snoring; E66.9 Obesity, unspecified; Z68.33 Body mass index [BMI] 33.0-33.9, adult | CPT/HCPCS: 95806 ==

== ENCOUNTER → 2023-06-11 13:26 | Outpatient (BNV) | payer MEDICARE, SELFPAY | PROVIDERS: PCP Internal Medicine; Visit Provider Internal Medicine | DX: R06.83 Snoring (principal); E66.9 Obesity, unspecified | CPT/HCPCS: 95806 ==

== ENCOUNTER 2023-06-25 13:49 | Outpatient (AMB) | payer MEDICARE, SELFPAY ==
[2023-06-25 13:59] VITALS: BP 124/68; PULSE 75; O2SAT 98; BMI 33.8
--- NOTE | 2023-06-25 13:59 | A.OFFVIS_ITS ---
Intake Vital Signs 3 06/25/23 13:59 Height 5 ft 1 in Weight 179 lb BMI 33.8 BP 124/68 Blood Pressure Location Rt brachial Position Sitting Pulse 75 Pulse Source Pulse Oximeter Pulse Oximetry (%) 98 Oxygen Delivery Method Room Air Intake Visit Reasons: Snoring f/u Ornamental Metal Worker Required: No Patient Care Coordinator: Patient Care Coordinator offered & declined Accompanied by: Self / Same As Patient Allergies demerol Allergy (Severe, Uncoded 06/25/23 14:11) hives Medication List - Last Reconciled 06/25/23 by Ankita Obregon LPN aspirin (Adult Low Dose Aspirin) 81 mg PO DAILY atorvastatin 20 mg PO DAILY calcium citrate 400 mg PO DAILY cholecalciferol (vitamin D3) 25 mcg orally 3x per week; meclizine 50 mg (2 x 25 mg) PO BID PRN multivitamin 1 tab PO DAILY omega [id number] oil 1,000 mg (120 mg-180 mg) (Fish Oil) 1 cap PO BID omeprazole 20 mg PO DAILY ondansetron 4 mg PO Q6H PRN HPI Snoring f/u 2 HPI0 Details Sarah is a very pleasant 73 year old female, never smoker, with underlying hypertension. Today she presents to review results of home sleep study. She was initially referred as her noticed loud snoring, otherwise denies symptoms such as morning headaches, daytime fatigue or PND. [facility] Social History (Updated 06/25/23 @ 14:07 by Ankita Obregon LPN) Patient Tobacco Use Status: Never used Tobacco Smoked in Last 30 Days: No Review of Systems Const Denies chills, Denies excessive sweating, Denies fever(s), Denies headache(s) and Denies night sweats Eyes Denies dry eyes, Denies irritation and Denies itchy eyes ENT Reports Normal hearing present, Denies headache(s), Denies nasal congestion, Denies nasal discharge, Denies post nasal drip and Denies sore throat Card Denies chest pain, Denies chest pain at rest, Denies chest pain with activity, Denies claudication, Denies leg edema, Denies dyspnea, Denies dyspnea on exertion, Denies orthopnea and Denies paroxysmal nocturnal dyspnea Resp Denies chest congestion, Denies cough, Denies excessive phlegm production, Denies pain on inspiration, Denies pain with cough, Denies dyspnea, Denies dyspnea on exertion, Denies stridor and Denies wheezing Musc Denies myalgias Neuro Reports Normal hearing present and Denies headache(s) Endo Denies excessive sweating Darvin/Lymph Denies lymphadenopathy Aller/Immun Denies itchy eyes, Denies seasonal rhinorrhea and Denies wheezing Physical Exam Vital Signs: Last Vital Signs Pulse 75 06/25/23 13:59 BP 124/68 06/25/23 13:59 Pulse Ox 98 06/25/23 13:59 Oxygen Delivery Method Room Air 06/25/23 13:59 BMI result Body Mass Index 33.8 Const General: cooperative, healthy appearing, comfortable, no acute distress, well developed and alert Nutritional Appearance: obese Orientation/consciousness: patient oriented x3 Limitations: no limitations HEENT Head: Yes normal to inspection, Yes normocephalic and Yes atraumatic Ears: hearing grossly normal bilaterally and external ears normal Eyes General: appearance normal, both eyes and all related structures Eyelids: Yes eyelids normal Sclerae: sclerae normal EOM: EOMs intact bilaterally Neck Neck: Yes normal visual inspection and Yes no lymphadenopathy Lymphatic: no lymphadenopathy noted Chest Chest palpation & inspection: normal inspection of the chest Resp Effort & Inspection: normal respiratory effort, able to speak in complete sentences, no audible wheezes, no cough, no stridor, not tachypneic, no tripod positioning and no use of accessory muscles Cardio Jugular venous distension: no JVD Rate: regular rate Rhythm: regular rhythm Skin Other: warm, dry General skin exam: no rashes or lesions noted Neuro General: patient oriented x3 Cranial nerves: Yes Normal hearing present Cognition (Neuro): normal cognition Gait exam (Neuro): Normal gait present Extrem General: Yes normal to inspection, Yes capillary refill normal, Yes no clubbing, cyanosis or edema and Yes no pedal edema Psych Appearance: grossly normal and well kempt Speech and movement: Normal speech and movement present and Clear speech present Affect: normal affect Attitude: cooperative Thought process: Normal thought process present Thought content: Normal thought content present Insight: Good insight present (Psych) Judgement: Good judgement present (Psych) Results Reviewed Results Reviewed: Assessment & Plan Assessment & Plan (1) Obstructive sleep apnea syndrome, mild: Code(s): G47.33 - Obstructive sleep apnea (adult) (pediatric) (2) Class 1 obesity with body mass index (BMI) of 33.0 to 33.9 in adult: Code(s): E66.9 - Obesity, unspecified; Z68.33 - Body mass index [BMI] 33.0-33.9, adult Plan Reviewed results of home sleep study which revealed obstructive sleep apnea related to position. In Sarah's case, she is asymptomatic and uses pillows to help maintain a lateral position while sleeping. When patient sleeps laterally, her AHI is 1. She is aware if she begins to develop symptoms, we can discuss CPAP therapy. At this time, she will practice conservative measures. All questions were answered and patient is in agreement of plan. Will follow up PRN. Coding Level of Care Code Est Pt Level 3 (93296) Diagnoses Obstructive sleep apnea syndrome, mild G47.33 Class 1 obesity with body mass index (BMI) of 33.0 to 33.9 in adult E66.9; Z68.33
== END 2023-06-25 14:21 | disposition home or self-care (01) ==
LOC: HO.HPSW 13:49
PROVIDERS: PCP Internal Medicine; Visit Provider Nurse Practitioner Family
DX: G47.33 Obstructive sleep apnea (adult) (pediatric) (principal); E66.9 Obesity, unspecified; Z68.33 Body mass index [BMI] 33.0-33.9, adult
CPT/HCPCS: 99213

== ENCOUNTER → 2023-06-25 13:49 | Outpatient (BNVA) | payer MEDICARE, SELFPAY | PROVIDERS: PCP Internal Medicine; Visit Provider Nurse Practitioner Family | DX: G47.33 Obstructive sleep apnea (adult) (pediatric) (principal); E66.9 Obesity, unspecified; Z68.33 Body mass index [BMI] 33.0-33.9, adult | CPT/HCPCS: 99212 ==

== ENCOUNTER 2024-03-17 09:34 | Outpatient (REF) | payer MEDICARE, SELFPAY ==
[2024-03-17 09:57] LABS: MANUAL DIFF FLAG NO
[2024-03-17 10:42] LABS: Appearance Urine Cloudy; Color Urine Yellow; Glucose Urine UA Negative (Negative); Leukocyte Esterase Urine Small (1+) (Negative); Nitrite Urine Negative (Negative); Specific Gravity - Urine 1.015 (1.005-1.025); UMIC TRIGGER UACC YES; Urine Blood Negative (Negative); Urine Ketones Negative (Negative); Urine Protein Negative (Neg-Trace)
[2024-03-17 10:48] LABS: Basophils Percent Auto 0.4 % (0-2); Eosinophils Absolute Auto 0.1 X10*3/uL (0.0-0.4); Hematocrit 40.5 % (37.0-47.0); Hemoglobin 13.3 g/dl (12.0-16.0); Imm Gran Abs Auto 0.03 X10*3/uL (0.00-0.03); Imm Gran Pct Auto 0.4 % (0.0-0.4); Lymphocytes Absolute Auto 2.8 X10*3/uL (1.2-4.9); Lymphocytes Percent Auto 39.1 % (20-40); Mean Corpuscular HGB Conc 32.8 g/dl (31.0-35.0); Mean Corpuscular Hemoglobin 30.7 pg (27.0-33.0); Mean Corpuscular Volume 93.5 fL (80.0-98.0); Mean Platelet Volume 10.1 fL (9.4-12.3); Monocytes Absolute Auto 0.7 X10*3/uL (0.1-1.2); Monocytes Percent Auto 9.2 % (2-11); Neutrophils Absolute Auto 3.5 x10*3/uL (2.0-8.3); Neutrophils Percent Auto 48.9 % (45-73); Platelet Count 188 X10*3/uL (160-400); Red Blood Count 4.33 X10*6/uL (4.20-5.50); Red Cell Distribution Width 13.9 % (11.0-16.0); White Blood Count 7.1 X10*3/uL (4.8-10.8)
[2024-03-17 10:52] LABS: Bacteria Urine Trace (None Seen); Hyaline Casts Urine 0-2 /LPF (0-2); RBC Urine 0-2 /HPF (0-2); UACC Culture Trigger YES
[2024-03-17 11:19] LABS: Alanine Aminotransferase 20 U/L (0-31); Albumin Level 4.3 g/dL (3.5-5.0); Alkaline Phosphatase 94 U/L (39-117); Anion Gap 12 (12-20); Aspartate Amino Transferase 21 U/L (5-31); Bilirubin Total 0.5 mg/dL (0.0-1.0); Blood Urea Nitrogen 23 mg/dL (9-16); Calcium 9.9 mg/dL (8.4-10.2); Carbon Dioxide 29 mmol/L (22-29); Chloride 103 mmol/L (96-108); Cholesterol 167 mg/dL (<200); Estimated Glomerular Filt Rate 54; Glucose Fasting 87 mg/dL (60-99); HDL Cholesterol 54 mg/dL (>40); LDL Cholesterol Calculated 85 mg/dL (<100); Potassium 4.3 mmol/L (3.3-5.1); Sodium 140 mmol/L (135-145); Total Protein 7.2 g/dL (6.5-8.0); Triglycerides 140 mg/dL (<150)
[2024-03-17 11:37] LABS: Vitamin D 25-OH Total 69.5 ng/mL (>30)
== END 2024-03-17 09:35 | disposition home or self-care (01) ==
LOC: HO.LAB 09:34
PROVIDERS: PCP Internal Medicine; Visit Provider Internal Medicine
DX: E55.9 Vitamin D deficiency, unspecified (principal); D72.820 Lymphocytosis (symptomatic); E78.00 Pure hypercholesterolemia, unspecified; I10 Essential (primary) hypertension; R82.90 Unspecified abnormal findings in urine
CPT/HCPCS: 36415; 80053; 80061; 81001; 82306; 85025; 87086

== ENCOUNTER 2024-07-01 10:27 | Outpatient (REF) | payer MEDICARE, SELFPAY ==
--- NOTE | ~2024-07-01 | MM_ITS ---
EXAMINATION: BONE DENSITOMETRY CLINICAL INDICATION: Age-related osteoporosis without current pathological fracture. COMPARISON: Previous BD dated 06/30/2022 and baseline BD dated 12/06/2001. TECHNIQUE: Using a [employer] DXA System (software version: 13.1) manufactured by [employer], dual-energy x-ray absorptiometry was performed of the lumbar spine and left hip. The images are of good technical quality. Summary results are attached. FINDINGS: LEFT FEMUR, NECK: Current: BMD 0.842 g/cm2, Z-score 0.2, T-score -1.4, osteopenia. Prior: BMD 0.802 g/cm2. Baseline: BMD 0.719 g/cm2. LEFT FEMUR, TOTAL: Current: BMD 0.887 g/cm2, Z-score 0.4, T-score -1.0, normal, 5.7% increase from previous, 21.7% increase from baseline (<5% change is not significant). Prior: BMD 0.839 g/cm2. Baseline: BMD 0.729 g/cm2. AP SPINE L1-L4: Current: BMD 1.024 g/cm2, Z-score 0.0, T-score -1.3, osteopenia, 2.1% increase from previous, 27.0% increase from baseline (<5% change is not significant). Prior: BMD 1.003 g/cm2. Baseline: BMD 0.806 g/cm2. IDENTIFIED RISK FACTORS: Osteoporosis, height loss, parental hip fracture, history of fracture (adult), menopause. HISTORY OF FRACTURE: Other. MEDICATIONS: Calcium supplements or multivitamin, vitamin D, bisphosphonates. MM/XR DEXA axial skeleton IMPRESSION: 1. DIAGNOSIS: Osteopenia based on the lowest T-score value of -1.4 in the femoral neck applying World Health Organization criteria. 2. 10-YEAR FRACTURE RISK PREDICTION, FRAX: Not performed in this patient on estrogen or bone building treatments. 3. Treatment Recommendations: NOF guidelines recommend consideration for treatment in postmenopausal women and men age 50 and older presenting with the following: -A hip or vertebral (clinical or morphometric) fracture. -T-score less than or equal to -2.5 at the femoral neck or spine after appropriate evaluation to exclude secondary causes. -Low bone mass at the hip or spine and a 10-year fracture probability by FRAX of greater than or equal to 3% for hip fracture or greater than or equal to 20% for major osteoporotic fracture based on the [place] adapted WHO algorithm. 4. Other Recommendations: All treatment decisions require clinical judgment and consideration of individual patient factors, including patient preferences, comorbidities, previous drug use, risk factors not captured in the FRAX model (e.g. frailty, falls, vitamin D deficiency, increased bone turnover, interval significant decline in bone density) and possible under or overestimation of fracture risk by FRAX. Additional medical evaluation for secondary cause of low bone mineral density may be appropriate. FUTURE SCAN RECOMMENDATION: People with diagnosed cases of osteoporosis or at high risk for fracture should have regular bone mineral density tests. For patients eligible for Medicare, routine testing is allowed once every 2 years. The testing frequency can be increased to one year for patients who have rapidly progressing disease, those who are receiving or discontinuing medical therapy to restore bone mass, or have additional risk factors. Electronically signed by: Shivani Trevino MD 07/01/2024 01:26 PM SURAJ GALVAN
== END 2024-07-01 10:28 | disposition home or self-care (01) ==
LOC: HO.MAMMO 10:27
PROVIDERS: PCP Internal Medicine; Visit Provider Internal Medicine Endocrinology, Diabetes & Metabolism
DX: M81.0 Age-related osteoporosis without current pathological fracture (principal)
CPT/HCPCS: 77080

== ENCOUNTER 2024-09-29 10:18 | Outpatient (REF) | payer MEDICARE, SELFPAY ==
[2024-09-29 12:07] LABS: Alanine Aminotransferase 21 U/L (0-31); Albumin Level 4.3 g/dL (3.5-5.0); Alkaline Phosphatase 93 U/L (39-117); Aspartate Amino Transferase 27 U/L (5-31); Bilirubin Direct 0.1 mg/dL (0.0-0.5); Bilirubin Total 0.5 mg/dL (0.0-1.0); Cholesterol 170 mg/dL (<200); HDL Cholesterol 55 mg/dL (>40); LDL Cholesterol Calculated 91 mg/dL (<100); Total Protein 7.7 g/dL (6.5-8.0); Triglycerides 121 mg/dL (<150)
[2024-09-29 13:02] LABS: Reflex LDLD? No
== END 2024-09-29 10:19 | disposition home or self-care (01) ==
LOC: HO.LAB 10:18
PROVIDERS: PCP Internal Medicine; Visit Provider Internal Medicine
DX: E78.00 Pure hypercholesterolemia, unspecified (principal)
CPT/HCPCS: 36415; 80061; 80076

== ENCOUNTER 2025-03-19 09:32 | Outpatient (REF) | payer MEDICARE, SELFPAY ==
[2025-03-19 09:47] LABS: MANUAL DIFF FLAG NO
--- OUTSIDE RECORDS SUMMARY | 2025-03-19 10:11 | XMS_ITS | Clinical Summary ---
Author Organization [facility] [address] [facility] Address [address] [place] [address] Phone Care Team Providers Care Store Operations Specialist Name Role Phone Albert Kearns MD Primary Care Provider [phone] Allergies Active Allergy Reactions Criticality Noted Date Comments Betadine Antibiotic/Moisturize 12/05 Meperidine Hives 12/05/2024 Medications atorvastatin (LIPITOR) 20 mg tablet Take 1 tablet (20 mg total) by mouth 1 (one) time each day. 5 Active omeprazole (PriLOSEC) [address] capsule Take 1 capsule (20 mg total) by mouth 1 (one) time each day. 5 Active CALCIUM CITRATE ORAL Take by mouth. Activ e multivit-min/fe rrous fumarate (MULTI VITAMIN ORAL) Take by mouth. Activ e cholecalciferol , vitamin D3, (VITAMIN D3 ORAL) Take by mouth. Activ e aspirin 81 mg capsule Take by mouth. Activ e omega 3-ayg-del-fish oil (Fish OiL) 1,000 (120-180) mg capsule Active meclizine (ANTIVERT) 25 mg tablet Take 1 tablet (25 mg total) by mouth 3 (three) times a day if needed for dizziness. Active ondansetron (ZOFRAN) 4 mg tablet Take 1 tablet (4 mg total) by mouth every 8 (eight) hours if needed for nausea or vomiting. Active sodium,potassiu m,mag sulfates (Suprep Bowel Prep Kit) 17.5-3.13-1.6 gram recon soln bowel prep kit oral solution Take 177ML by mouth for 2 doses. SEE INSTRUCTIONS PROVIDED BY OFFICE. 1 kit Active Active Problems Problem Noted Date Diagnosed Date Gastroesophageal reflux disease 03/05/2025 Encounters Date Type Department Care Team Description 03/05/2025 11:17 AM EDT Anesthesia Event [facility] Endoscopy [address] [place] [address] Natacha Reyes MD 03/05/2025 10:02 AM EDT - 03/05/2025 11:59 PM EDT Hospital Encounter [facility] End[facility] [address] [place] [address] Elyse Garcia MD Johnson, Lorraine, CRNA Kriz, Petra, MD Family history of colon cancer Discharge Disposition: Home or Self Care from Last 3 Months Surgical History Surgery Date Site/Laterality Comments COLONOSCOPY 10/27/2016 nl COLONOSCOPY 12/15/2010 nl COLONOSCOPY 04/05/2005 nl Medical History Medical History Date Comments GERD (gastroesophageal reflux disease) Osteopenia Hyperlipidemia Clavicle fracture Family History Medical History Relation Name Comments Colon polyps Mother Relation Name Status Comments Mother Social History Tobacco Use Types Packs/Day Years Used Date Smoking Tobacco: Never Smokeless Tobacco: Never Tobacco Cessation:Counseling Given: Not Answered Alcohol Use Standard Drinks/Week Comments Not Currently 0 (1 standard drink = 0.6 oz pur e alcohol) Interpersonal Safety Answer Date Record ed Physical Abuse 03/05/2025 Verbal Abuse 03/05/2025 Comments No Sex and Gender Information Value Date Recorded Sex Assigned at Not on file Legal Sex Female 4:20 PM EST Gender Identity Not on file Sexual Orientation Not on file 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 Not on file Not on file Not o n file Travel History Travel Start Travel End [place] 02/17/2025 02/18/2025 Obstetrics History Last Filed Vital Signs Vital Sign Reading Time Taken Comments Blood Pressure 124/68 03/05/2025 12:00 PM EDT Pulse 64 03/05/2025 12:00 PM EDT Temperature 36 C (96.8 F) 03/05/2025 11:35 AM EDT Respiratory Rate 17 03/05/2025 12:00 PM EDT Oxygen Saturation 99% 03/05/2025 12:00 PM EDT Inhaled Oxygen Concentration - - Weight 79.4 kg (175 lb) 03/05/2025 10:30 AM EDT Height 152.4 cm (5') 03/05/2025 10:30 AM EDT Body Mass Index 34.18 03/05/2025 10:30 AM EDT Plan of Treatment Health Maintenance Due Date Last Done Comments Breast Cancer Screening 1950 Depression Screening 08/27/2024 Hepatitis C Screening 10/02/2024 Medicare Annual Wellness Visit 10/02/2024 Osteoporosis Screening (Bone Density Screening) 10/02/2024 Social Influencers of Health Screening 10/02/2024 COVID-19 Vaccine (2023- season) 2025 07/18/2024, 05/29/2023, 01/24/2023, Additional history exists Influenza Vaccine (#1) 2025 , 05/16/2023, 05/27/2022, Additional history exists Falls Risk Assessment 03/05/2026 03/05/2025 DTaP,Tdap,and Td Vaccines (2 - Td or Tdap) 10/04/2027 10/04/2017 Colorectal Cancer Screening: Colonoscopy 03/05/2035 03/05/2025, 12/10/2024 Pneumococcal Vaccine: 50+ Years Completed 12/09/2018, 08/09/2017, 08/07/2016 Zoster Vaccines Completed 03/03/2019, 12/17/2018 RSV Immunization Adult Patients Completed 06/15/2023 HIB Vaccines Aged Out No longer eligi ble based on patient's age to complete this topic HPV Vaccines Aged Out No longer eligi ble based on patient's age to complete this topic Hepatitis A Vaccines Aged Out No long er eligible based on patient's age to complete this topic Hepatitis B Vaccines Aged Out No long er eligible based on patient's age to complete this topic IPV Vaccines Aged Out No longer eligi ble based on patient's age to complete this topic MMR Vaccines Aged Out No longer eligi ble based on patient's age to complete this topic Meningococcal ACWY Vaccine Aged Out N o longer eligible based on patient's age to complete this topic Meningococcal B Vaccine Aged Out No l onger eligible based on patient's age to complete this topic RSV Immunization Patients Under 20 months Aged Out No longer eligible based on patient's age to complete this topic Varicella Vaccines Aged Out No longer eligible based on patient's age to complete this topic Procedures Procedure Name Priority Date/Time Associated Diagnosis Comments COLONOSCOPY Routine 03/05/2025 11:34 AM EDT Family history of colon cancer from Last 3 Months Results * COLONOSCOPY Anesthesia - MAC; [facility] ENDOSCOPY (03/05/2025 11:34 AM EDT) Anatomical Region Laterality Modality Endoscopy 03/05/2025 11:1 3 AM EDT Impressions 03/05/2025 11:33 AM EDT - Hemorrhoids found on perianal exam. - The examined portion of the ileum was normal. - Internal hemorrhoids. - The entire examined colon is normal. - No specimens collected. Recommendation: - Repeat colonoscopy in 7 years for screening purposes. Narrative 03/05/2025 11:33 AM EDT [facility] GI Patient Name: Sarah Eisenberg Procedure Date: 03/05/2025 11:13 AM Date of : 1950 Age: 74 Gender: Female Note Status: Finalized Attending MD: Elyse Garcia MD, Procedure Date No Time: 03/05/2025 Procedure: Colonoscopy Indications: Colon cancer screening in patient at increased risk: Family history of 1st-degree relative with colon polyps before age 60 years Providers: Elyse Garcia MD Referring MD: Albert Kearns MD Medicines: Propofol per Anesthesia Complications: No immediate complications. Estimated Blood Loss: Estimated blood loss: none. Procedure: Pre-Anesthesia Assessment: - ASA Grade Assessment: II - A patient with mild systemic disease. After I obtained informed consent, the scope was passed under direct vision. Throughout the procedure, the patient's blood pressure, pulse, and oxygen saturations were monitored continuously.The Olympus Pediatric Colonoscope was introduced through the anus and advanced to the terminal ileum. The colonoscopy was performed without difficulty. The patient tolerated the procedure well. The quality of the bowel preparation was good. Findings: Hemorrhoids were found on perianal exam. The terminal ileum appeared normal. Internal hemorrhoids were found during retroflexion. The hemorrhoids were Grade I (internal hemorrhoids that do not prolapse). The entire examined colon appeared normal. Procedure Code(s): --- Professional --- G0105, Colorectal cancer screening; colonoscopy on individual at high risk Diagnosis Code(s): --- Professional --- Z83.71, Family history of colonic polyps CPT copyright 2020 [employer]. All rights reserved. The codes documented in this report are preliminary and upon lead software tester review may be revised to meet current compliance requirements. Elyse Garcia MD 03/05/2025 11:33:27 AM This report has been signed electronically.Elyse Garcia MD Number of Addenda: 0 Note Initiated On: 03/05/2025 11:13 AM Scope In: Scope Out: Endoscopy Department at [facility] - [address] [place] [id number] Procedure Note Elyse Garcia MD - 03/05/2025 [facility] GI Patient Name: Sarah Eisenberg Procedure Date: 03/05/2025 11:13 AM Date of : 1950 Age: 74 Gender: Female Note Status: Finalized Attending MD: Elyse Garcia MD, Procedure Date No Time: 03/05/2025 Procedure: Colonoscopy Indications: Colon cancer screening in patient at increasedrisk: Family history of 1st-degree relative with colon polyps before age 60 years Providers: Elyse Garcia MD Referring MD: Albert Kearns MD Medicines: Propofol per Anesthesia Complications: No immediate complications. Estimated Blood Loss: Estimated blood loss: none. Procedure: Pre-Anesthesia Assessment: - ASA Grade Assessment: II - A patient with mild systemic disease. After I obtained informed consent, the scope was passed under direct vision. Throughout theprocedure, the patient's blood pressure, pulse, and oxygen saturations were monitored continuously.The Olympus Pediatric Colonoscope was introduced through theanus and advanced to the terminal ileum. The colonoscopy was performed without difficulty. The patient tolerated the procedure well. The quality of thebowel preparation was good. Findings: Hemorrhoids were found on perianal exam. The terminal ileum appeared normal. Internal hemorrhoids were found duringretroflexion. The hemorrhoids were Grade I (internal hemorrhoids that do not prolapse). The entire examined colon appeared normal. Procedure Code(s): --- Professional --- G0105, Colorectal cancer screening; colonoscopy on individual at high risk Diagnosis Code(s): --- Professional --- Z83.71, Family history of colonic polyps CPT copyright 2020 [employer]. All rights reserved. The codes documented in this report are preliminary and upon lead software tester reviewmay be revised to meet current compliance requirements. Elyse Garcia MD 03/05/2025 11:33:27 AM This report has been signed electronically.Elyse Garcia MD Number of Addenda: 0 Note Initiated On: 03/05/2025 11:13 AM Scope In: Scope Out: Endoscopy Department at [address] [id number] IMPRESSION: - Hemorrhoids found on perianal exam. - The examined portion of the ileum was normal. - Internal hemorrhoids. - The entire examined colon is normal. - No specimens collected. Recommendation: - Repeat colonoscopy in 7 years for screeningpurposes. Elyse Garcia MD GI~PROCEDURE ORDERABLES Final Result from Last 3 Months Insurance MEDICARE [facility] Care Teams Store Operations Specialist Relationship Specialty Start Date End Date Albert Kearns MD [address] PCP - General Internal Medicine 10/01/24
--- OUTSIDE RECORDS SUMMARY | 2025-03-19 10:11 | XMS_ITS | Patient Health Record ---
[facility] Address [address] [place] [place] [address] Care Team Providers Care Ice Skater Name Role Phone Alfredo Kearns MD Primary Care Provider Roger Holcomb Unavailable [phone] Allergies Allergen (clinical drug ingredient) Drug/Non Drug Allergy documented on EMR Reaction Allergy Type Onset Date Status meperidine Demerol Hives Drug Allergy Active Iodine Burning Drug Allergy Active Merthiolate (New Formula) Burning Drug Allergy Active Reason For Referral No Information Medications Medication SIG (Take, Route, Frequency, Duration) Notes Start Date End Date Status Calcium + D Not-Taki ng Aspirin Active Lipitor Active Multivitamin Active Calcium Active Fish Oil Active Vitamin D Active Alendronate Sodium 70 MG 1 tablet 30 min utes before the first food, beverage or medicine of the day dissolved in 4 ounces of water Oral Once a week Not-Taking Omeprazole Active Simvastatin Active Immunizations Vaccine Route Administration Date Status Comme nts Influenza Unknown 05/27/2022 Administered Influenza Unknown 05/27/2024 Administered COVID-19 Moderna Vaccine Unknown 06/18/2021 Administered 1st 10/19/2020 2nd 11/16/2020 Social History Tobacco Use: Social History Observation Description Date Details (start date - stop date) Never Smoker NA - NA Tobacco use other than smoking: Question Answer Notes Are you an other tobacco user? No Tobacco Control (Standard) Question Answer Notes Tobacco use: Nonsmoker Additional Findings: Tobacco non-user Current no nsmoker AUDIT-C (Standard) Question Answer Notes Did you have a drink containing alcohol in the p ast year? No Points 0 Interpretation Negative Problems Problem Type SNOMED Code ICD Code Onset Dates Problem Status W/U Status Risk Notes Problem Bilateral atherosclerosis of arteries of lower limbs (disorder) ([id number] ) Atherosclerosis of [place] artery of both lower extremities, with unspecified presence of clinical manifestation (I70.203) Active confirmed Vital Signs Blood pressure diastolic 65 mm Hg 02/24/2025 Height 5ft in 02/24/2025 Blood pressure systolic 120 mm Hg 02/24/2025 Weight 177 lbs 02/24/2025 BMI 34.56 kg/m2 02/24/2025 Procedures Procedure Date Ordered Date Performed Result Body Sit e 14652-UNAERLL NAIL, 6 OR MORE 05/13/2024 N/A 37717-TFGV SKIN LESIONS, OVER 4 05/13/2024 N/A 42049-LGKWYAY NAIL, 6 OR MORE 08/12/2024 N/A 33390-QKVB SKIN LESIONS, OVER 4 08/12/2024 N/A 79568-YLSWBZK NAIL, 6 OR MORE 11/25/2024 N/A 68017-BWBP SKIN LESIONS, OVER 4 11/25/2024 N/A 47354-YVPROKC NAIL, 6 OR MORE 02/24/2025 N/A 69633-VFTQ SKIN LESIONS, OVER 4 02/24/2025 N/A Encounters Encounter Location Date Provider Diagnosis [facility] [address] [address] 05/13/2024 Roger Montilla Atherosclerosis of [place] artery of both lower extremities, with unspecified presence of clinical manifestation I70.203 ; Tinea unguium B35.1 ; Pain in right toe(s) M79.674 ; Pain in left toe(s) M79.675 ; Achilles tendinitis of right lower extremity M76.61 and Achilles tendinitis of left lower extremity M76.[address] [facility] [address] 08/12/2024 Roger Montilla Atherosclerosis of [place] artery of both lower extremities, with unspecified presence of clinical manifestation I70.203 ; Tinea unguium B35.1 ; Pain in right toe(s) M79.674 ; Pain in left toe(s) M79.675 and Achilles tendinitis of left lower extremity M76.[address] [address] 11/25/2024 Roger Montilla Atherosclerosis of [place] artery of both lower extremities, with unspecified presence of clinical manifestation I70.203 ; Tinea unguium B35.1 ; Pain in right toe(s) M79.674 ; Pain in left toe(s) M79.675 and Achilles tendinitis of left lower extremity M76.[address] [address] 02/24/2025 Roger Montilla Tinea unguium B35.1 ; Atherosclerosis of [place] artery of both lower extremities, with unspecified presence of clinical manifestation I70.203 ; Pain in right toe(s) M79.674 and Pain in left toe(s) M79.[address] [address] 02/24/2025 Roger Montilla Assessments Encounter Date Diagnosis (ICD Code) Assessment Notes Treatment Notes Treatment Clinical Notes Section Notes 05/13/2024 Tinea unguium (ICD-10 - B35.1) 05/13/2024 Atherosclerosis of [place] artery of both lower extremities, with unspecified presence of clinical manifestation (ICD-10 - I70.203) 08/12/2024 Tinea unguium (ICD-10 - B35.1) 08/12/2024 Atherosclerosis of [place] artery of both lower extremities, with unspecified presence of clinical manifestation (ICD-10 - I70.203) 11/25/2024 Tinea unguium (ICD-10 - B35.1) 11/25/2024 Atherosclerosis of [place] artery of both lower extremities, with unspecified presence of clinical manifestation (ICD-10 - I70.203) 02/24/2025 Tinea unguium (ICD-10 - B35.1) 02/24/2025 Atherosclerosis of [place] artery of both lower extremities, with unspecified presence of clinical manifestation (ICD-10 - I70.203) 02/24/2025 Pain in right toe(s) (ICD-10 - M79.674) 11/25/2024 Pain in right toe(s) (ICD-10 - M79.674) 08/12/2024 Pain in right toe(s) (ICD-10 - M79.674) 05/13/2024 Pain in right toe(s) (ICD-10 - M79.674) 05/13/2024 Pain in left toe(s) (ICD-10 - M79.675) 08/12/2024 Pain in left toe(s) (ICD-10 - M79.675) 11/25/2024 Pain in left toe(s) (ICD-10 - M79.675) 02/24/2025 Pain in left toe(s) (ICD-10 - M79.675) 11/25/2024 Achilles tendinitis of left lower extremity (ICD-10 - M76.62) 08/12/2024 Achilles tendinitis of left lower extremity (ICD-10 - M76.62) 05/13/2024 Achilles tendinitis of right lower extremity (ICD-10 - M76.61) 05/13/2024 Achilles tendinitis of left lower extremity (ICD-10 - M76.62) Plan Of Treatment Pending Test Test Name Order Date 34898-BRAGGLX NAIL, 6 OR MORE 07/12/2017 44089-XNYXGPH NAIL, 6 OR MORE 09/13/2017 56883-RANONHD NAIL, 6 OR MORE 11/22/2017 62550-KLQKNFJ NAIL, 6 OR MORE 02/07/2018 47185-REUBYFV NAIL, 6 OR MORE 05/09/2018 50093-ZKAHGHN NAIL, 6 OR MORE 07/26/2018 71351-QWLRTEQ NAIL, 6 OR MORE 10/11/2018 78755-PHCSLBI NAIL, 6 OR MORE 12/27/2018 65000-EPERRPS NAIL, 6 OR MORE 03/28/2019 43643-RLNKCYU NAIL, 6 OR MORE 06/27/2019 73832-NDWGYAY NAIL, 6 OR MORE 10/06/2019 17158-FGOSUOX NAIL, 6 OR MORE 02/06/2020 40660-KXLWJGU NAIL, 6 OR MORE 04/16/2020 89532-UHVMFLJ NAIL, 6 OR MORE 07/02/2020 22070-VTMUZGV NAIL, 6 OR MORE 09/21/2020 90966-PQBLKKT NAIL, 6 OR MORE 11/30/2020 31347-LXMNYCB NAIL, 6 OR MORE 02/11/2021 74255-KPXVLGC NAIL, 6 OR MORE 05/06/2021 56782-VNASQAN NAIL, 6 OR MORE 07/08/2021 15475-LLPRXGT NAIL, 6 OR MORE 09/16/2021 56645-XHOIVZM NAIL, 6 OR MORE 11/25/2021 77712-ZKOCCEZ NAIL, 6 OR MORE 02/17/2022 37739-SZSLYNZ NAIL, 6 OR MORE 05/09/2022 93691-LAMMQGF NAIL, 6 OR MORE 07/25/2022 07765-MPEMFAF NAIL, 6 OR MORE 09/26/2022 14976-AEYIUAE NAIL, 6 OR MORE 12/05/2022 80721-JGMGACU NAIL, 6 OR MORE 02/20/2023 04271-WJOEUSW NAIL, 6 OR MORE 05/08/2023 47618-VGSZZQV NAIL, 6 OR MORE 09/26/2023 90521-DXKRGLA NAIL, 6 OR MORE 12/11/2023 82162-MRIBFHM NAIL, 6 OR MORE 02/26/2024 23899-NWAYRNH NAIL, 6 OR MORE 05/13/2024 69075-VOQMIDC NAIL, 6 OR MORE 08/12/2024 53454-UHLPTCH NAIL, 6 OR MORE 11/25/2024 33791-XECDTUR NAIL, 6 OR MORE 02/24/2025 41713-Cfoa Destruction, -14 04/16/2020 02734-Yfih Destruction, -14 09/21/2020 78711-Ctdl Destruction, 14 07/02/2020 54077-Xbff Destruction, 09-0902/06/2020 38454-Nwsr Destruction, 09-0910/06/2019 07897-Etcl Destruction, -14 06/27/2019 22770-Otyy Destruction, -03/28/2019 50561-Sgpn Destruction, 09-0912/27/2018 58380-Thtp Destruction, 14 10/11/2018 52099-Wiur Destruction, -14 07/26/2018 86146-Ykbd Destruction, -14 05/09/2018 70250-Joke Destruction, -02/07/2018 19846-Umnp Destruction, -11/22/2017 99242-Qgtw Destruction, 1-14 07/12/2017 99288-Wydp Destruction, 1-09/13/2017 67698-Xtwsvqtr Plate 09/13/2017 60983-Xwikmjgw Plate 02/23/2017 78259-Lboemxuo Plate 05/09/2017 57536-Hhrnklnl Plate 04/16/2020 70866-Ojnlusbn Plate 12/11/2023 80954-Ossojrey Plate 05/08/2023 97307-Awmqiedb Plate 02/20/2023 21945-Wlcxqqxf Plate 12/05/2022 20797-Xwwfhxvw Plate 09/26/2022 55666-Ugbkpxqk Plate 05/09/2022 42715-Yebgtmuh Plate 02/17/2022 73668-BSRX SKIN LESIONS, OVER 4 12/11/19 24 93127-ANKM SKIN LESIONS, OVER 4 05/13/20 24 86833-GFFR SKIN LESIONS, OVER 4 02/26/20 24 22698-GYNL SKIN LESIONS, OVER 4 02/25/20 25 89890-FQDF SKIN LESIONS, OVER 4 11/26/19 25 05971-USZB SKIN LESIONS, OVER 4 08/12/20 24 86012,Z5718-OAF TENDON SHEATH/LIGAMENT 1 09/27/2019 62532,J0948-NBV TENDON SHEATH/LIGAMENT 0 09/21/2020 Next Appt Details Provider Name:Roger Montilla , 05/26/2025 04:00:00 PM, [address] [facility], [place], [address], Insurance Providers Payer Name Payer Address Payer Phone Subscriber Number Group Number Insured Name Patient Relationship to Insured Coverage Start Date Coverage End Date Medicare National [employer]t [employer] [address] [place] [address] [id number] orjanuary Self - patient is the insured 6 [employer] [address] [place] [address] [phone] [id number] Darcyyasminjanuary Self - patient is the insured Medical (General) History Medical History History ICD Code broken bones Cholesterol diverticulosis osteoporosis raynauds syndrome measles mumps chicken pox Anemia Reflux Sciatica Warts Spondylolisthasis Grade I Surgical History Surgery Date(Month/Year) tonsillectomy and adenoidectomy 1950 wisdom teeth extraction 1970 colonoscopy 2010 dental/ gums 02/22/2017
--- OUTSIDE RECORDS SUMMARY | 2025-03-19 10:12 | XMS_ITS | Patient Health Record ---
Author Organization Alfredo Kearns MD Address [address] [place], [place] [id number] Care Team Providers Care Field Service Supervisor Name Role Phone Alfredo Kearns Primary Care Provider Allergies Allergen (clinical drug ingredient) Drug/Non Drug Allergy documented on EMR Reaction Allergy Type Onset Date Status meperidine Demerol Hives Drug Allergy Active povidone-iodine Betadine burning feeling Drug Allergy Active Results Component Value Reference Range Notes XR DEXA axial skeleton Reviewed date:07/05/2024 05:34:36 PM Interpretation: Performing Lab: Notes/Report: [address] [place] [address] Mammography Report Signed Patient: BrandonJanuary MR#: [id number] : 1950 Acct:[id number] Age/Sex: 74 / F ADM Date: 07/01/24 Loc: HO.MAMMO Attending Dr: Akshat Lambert MD Ordering Physician: AKSHAT LAMBERT MD Results: Date of Service: 07/01/24 Follow Up: Procedure(s): XR DEXA axial skeleton Accession Number(s): [id number] cc: Alfredo Kearns MD; AKSHAT LAMBERT MD EXAMINATION: BONE DENSITOMETRY CLINICAL INDICATION: Age-related osteoporosis without current pathological fracture. COMPARISON: Previous BD dated 06/30/2022 and baseline BD dated 12/06/2001. TECHNIQUE: Using a ZipZap DXA System (software version: 13.1) manufactured by [employer], dual-energy x-ray absorptiometry was performed of the lumbar spine and left hip. The images are of good technical quality. Summary results are attached. FINDINGS: LEFT FEMUR, NECK: Current: BMD 0.842 g/cm2, Z-score 0.2, T-score -1.4, osteopenia. Prior: BMD 0.802 g/cm2. Baseline: BMD 0.719 g/cm2. LEFT FEMUR, TOTAL: Current: BMD 0.887 g/cm2, Z-score 0.4, T-score -1.0, normal, 5.7% increase from previous, 21.7% increase from baseline (<5% change is not significant). Prior: BMD 0.839 g/cm2. Baseline: BMD 0.729 g/cm2. AP SPINE L1-L4: Current: BMD 1.024 g/cm2, Z-score 0.0, T-score -1.3, osteopenia, 2.1% increase from previous, 27.0% increase from baseline (<5% change is not significant). Prior: BMD 1.003 g/cm2. Baseline: BMD 0.806 g/cm2. IDENTIFIED RISK FACTORS: Osteoporosis, height loss, parental hip fracture, history of fracture (adult), menopause. HISTORY OF FRACTURE: Other. MEDICATIONS: Calcium supplements or multivitamin, vitamin D, bisphosphonates. MM/XR DEXA axial skeleton IMPRESSION: 1. DIAGNOSIS: Osteopenia based on the lowest T-score value of -1.4 in the femoral neck applying World Health Organization criteria. 2. 10-YEAR FRACTURE RISK PREDICTION, FRAX: Not performed in this patient on estrogen or bone building treatments. 3. Treatment Recommendations: NOF guidelines recommend consideration for treatment in postmenopausal women and men age 50 and older presenting with the following: -A hip or vertebral (clinical or morphometric) fracture. -T-score less than or equal to -2.5 at the femoral neck or spine after appropriate evaluation to exclude secondary causes. -Low bone mass at the hip or spine and a 10-year fracture probability by FRAX of greater than or equal to 3% for hip fracture or greater than or equal to 20% for major osteoporotic fracture based on the [place] adapted WHO algorithm. 4. Other Recommendations: All treatment decisions require clinical judgment and consideration of individual patient factors, including patient preferences, comorbidities, previous drug use, risk factors not captured in the FRAX model (e.g. frailty, falls, vitamin D deficiency, increased bone turnover, interval significant decline in bone density) and possible under or overestimation of fracture risk by FRAX. Additional medical evaluation for secondary cause of low bone mineral density may be appropriate. FUTURE SCAN RECOMMENDATION: People with diagnosed cases of osteoporosis or at high risk for fracture should have regular bone mineral density tests. For patients eligible for Medicare, routine testing is allowed once every 2 years. The testing frequency can be increased to one year for patients who have rapidly progressing disease, those who are receiving or discontinuing medical therapy to restore bone mass, or have additional risk factors. Electronically signed by: Shivani Trevino MD 07/01/2024 01:26 PM EST Dictated By: Shivani Trevino MD Signed By: <Electronically signed by Shivani Trevino MD in OV> 07/01/24 1326 DD/ 1030 TD/TT: 07/01/24 1050 Foster Care Worker: KAELA [place] [facility]'[address] [place] [address] Mammography Report Signed Patient: Cielo Taylor MR#: [id number] : 1950 Acct:[id number] Age/Sex: 74 / F ADM Date: 07/01/24 Loc: HO.MAMMO Attending Dr: Akshat Lambert MD Ordering Physician: AKSHAT LAMBERT MD Results: Date of Service: 07/01/24 Follow Up: Procedure(s): XR DEX A axial skeleton Accession Number(s): [id number] cc: Alfredo Kearns MD; AKSHAT LAMBERT MD EXAMINATION: BONE DENSITOMETRY CLINICAL INDICATION: Age-related osteoporosis without current pathological fracture. COMPARISON: Previous BD dated 06/30/2022 and baseline BD dated 12/06/2001. TECHNIQUE: Using a ZipZap DXA System (software version: 13.1) manufactured [employer], dual-energy x-ray absorptiometry was performed of the lumbar spine and left hip. The images are of good technical quality. Summary results are attached. FINDINGS: LEFT FEMUR, NECK: Current: BMD 0.842 g/cm2, Z-score 0.2, T-score -1.4, osteopenia. Prior: BMD 0.802 g/cm2. Baseline: BMD 0.719 g/cm2. LEFT FEMUR, TOTAL: Current: BMD 0.887 g/cm2, Z-score 0.4, T-score -1.0, normal, 5.7% increase from previo us, 21.7% increase from baseline (<5% change is not significant). Prior: BMD 0.839 g/cm2. Baseline: BMD 0.729 g/cm2. AP SPINE L1-L4: Current: BMD 1.024 g/cm2, Z-score 0.0, T-score -1.3, osteopenia, 2.1% increase from previo us, 27.0% increase from baseline (<5% change is not significant). Prior: BMD 1.003 g/cm2. Baseline: BMD 0.806 g/cm2. IDENTIFIED RISK FACTORS: Osteoporosis, height loss, parental hip fracture, history of fracture (adult), menopause. HISTORY OF FRACTURE: Other. MEDICATIONS: Calcium supplements or multivitamin, vitamin D, bisphosphonates. MM/XR DEXA axial skeleton IMPRESSION: 1. DIAGNOSIS: Osteopenia based on the lowest T-score value of -1.4 in the femoral neck applying World Health Organization criteria. 2. 10-YEAR FRACTURE RISK PREDICTION, FRAX: Not performed in this patient on estrogen or bone building treatments. 3. Treatment Recommendations: NOF guidelines recommend consideration for treatment in postmenopausal women and men age 50 and older presenting with the following: -A hip or vertebral (clinical or morphometric) fracture. -T-score less than o r equal to -2.5 at the femoral neck or spine after appropriate evaluati on to exclude secondary causes. -Low bone mass at th e hip or spine and a 10-year fracture probability by FRAX of greater t echeverria or equal to 3% for hip fracture or greater than or equal to 20% for major osteoporotic fracture based on the [place] adapted WHO algorithm. 4. Other Recommendations: All treatment decisions require clinical judgment and consideration of individual patient factors, including patient preferences, comorbidities, previous drug use, risk factors not captured in the FRAX model (e.g. frailty, falls, vitamin D deficiency, increased bone turnover, interval significant decline in bone density) and possible under o r overestimation of fracture risk by FRAX. Additional medical evaluation for secondary cause of low bone mineral density may be appropriate. FUTURE SCAN RECOMMENDATION: People with diagnose d cases of osteoporosis or at high risk for fracture should have regular bone mineral density tests. For patients eligible for Medicar e, routine testing is allowed once every 2 years. The testing frequenc y can be increased to one year for patients who have rapidly progressing disease, those who are receiving or discontinuing medica l therapy to restore bone mass, or have additional risk factors. Electronically wild d by: Shivani Trevino MD 07/01/2024 01:[address] [facility] Dictated By: Shivani Trevino MD Signed By: <Electronically signed by Shivani Trevino MD in OV> 07/01/24 1326 DD/ 1030 TD/TT: 07/01/24 1050 Foster Care Worker: KAELA Liver Panel Reviewed date:10/03/2024 12:30:57 PM Interpretation: Performing Lab:[facility], [address] [place] [id number] Notes/Report: Bilirubin Total 0.5 0.0-1.0 mg/dL Bilirubin Direct 0.1 0.0-0.5 mg/dL Aspartate Amino Transferase 27 5-31 U/L Alanine Aminotransferase 21 0-31 U/L Total Protein 7.7 6.5-8.0 g/dL Albumin Level 4.3 3.5-5.0 g/dL Alkaline Phosphatase 93 39-117 U/L Lipid Panel with Reflex Reviewed date:10/03/2024 12:37:54 PM Interpretation: Performing Lab:[facility], [address] [place] [phone] Notes/Report: Triglycerides 121 <150 mg/dL Desirable Triglyceride: less than 150 mg/dL Borderline High Triglyceride 150-199 mg/dL High Triglyceride: 200-499 mg/dL Very High Triglyceride: greater than or equal to 5OO mg/dL Cholesterol 170 <200 mg/dL Desirable Cholesterol: less than 200 mg/dL Borderline High Cholesterol: 200-239 mg/dL High Cholesterol: greater than 239 mg/dL LDL Cholesterol Calculated 91 <100 mg/dL Desirable LDL: less than 100 mg/dL Near Optimal/Above Optimal LDL: 110-129 mg/dL Borderline High LDL: 130-159 mg/dL High LDL: 160-189 mg/dL Very High LDL: greater than or equal to 190 mg/dL HDL Cholesterol 55 >40 mg/dL Desirable HDL: greater than 40 mg/dL Note: This HDL assay may give artificially low results in patients with liver disease. Reason For Referral No Information Medications Medication SIG (Take, Route, Frequency, Duration) Notes Start Date End Date Status Clotrimazole-Betamethasone 1-0.05 % 1 application Externally Twice a day Active Fish Oil 1000 MG 1 capsule with a gurdeep l Orally twice a day for 30 day(s) Active Aspir-81 81 MG 1 tablet Orally Once a day for 30 day(s) Active Clobetasol Propionate 0.05 % 1 application Externally Twice a day for 10 day(s) 02/07/2021 Active Atorvastatin Calcium 20 MG TAKE 1 TABLET BY MOUTH EVERY DAY for 90 Active Multi Vitamin/Minerals as directed Orally Active Omeprazole 20 MG TAKE 1 CAPSULE BY MO UTH EVERY DAY for 90 Active Vitamin D 1000 UNIT 1 tablet Orally 3 ti mes a week Active Immunizations Vaccine Route Administration Date Status Comme nts Shingles Unknown 08/24/2011 Administered Give on 07/28 05/07 Flu Vaccine Unknown 06/01/2013 Administered flu vac at work Flu Vaccine Unknown 06/15/2014 Administered [facility]ONE AT [facility] PPSV23 (Pnemovax) IM Intramuscular 08/07/2016 Administered pt recieved the vaccine at [facility] in [place]. TDaP IM Intramuscular 10/04/2017 Administered pt was given the vaccine at [facility] in [place]. Influenza High Dose IM Intramuscular 05/27/2018 Administered pt was given th e vaccine at [facility]. Shingrix IM Intramuscular 12/17/2018 Administered pt was given the vaccine at [facility]. Prevnar 13 Unknown 12/09/2018 Administered [facility] Shingrix IM Intramuscular 03/03/2019 Administered pt was given the vaccine at [facility] in [place]. Influenza High Dose IM Intramuscular 05/23/2019 Administered pt was given th e vaccine at [facility]. Influenza High Dose Unknown 05/20/2020 Administered [facility] SARS-COV-2 Moderna Unknown 10/05/2020 Administered SARS-COV-2 Moderna Unknown 10/19/2020 Administered SARS-COV-2 Moderna Unknown 11/16/2020 Administered SARS-COV-2 Moderna Unknown 06/21/2021 Administered SARS-COV-2 Moderna Unknown 12/02/2021 Administered SARS-COV-2 Moderna Unknown 05/07/2022 Administered Justin valdivia's Influenza High Dose Unknown 05/27/2022 Administered Social History Tobacco Use: Social History Observation Description Date Details (start date - stop date) Never Smoker NA - NA Tobacco Use/Smoking Question Answer Notes Patient is a nonsmoker Additional Findings: Tobacco Non-User Cu rrent non-smoker, currently using no form of tobacco Alcohol Screen Question Answer Notes Did you have a drink containing alcohol in the p ast year? No Points 0 Interpretation Negative Problems Problem Type SNOMED Code ICD Code Onset Dates Problem Status W/U Status Risk Notes Problem 502854607 Actinic keratosi s (L57.0) Active confirmed Problem 44373759 Hematuria (R31.9) Active confirmed Problem 28975606 Lymphocytosis (D72.820) Active confirm ed Problem 78921866 Vitamin D defici ency (E55.9) Active confirmed Problem 035430202 Other specified menopausal and perimenopausal disorders (N95.8) Active confirmed Problem 468767552 Osteopenia (M85.80) Active confirmed Problem 63284900 Essential hypert ension (I10) Active confirmed Problem Hearing loss, 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) Active confirmed Problem 375174027 Pure hypercholesterolemia (E78.00) Active confirmed Problem 57492290 APC (adenomatous polyposis coli) (D12.6) Active confirmed Vital Signs Blood pressure diastolic 66 mm Hg 03/24/2024 Height 61 in 03/24/2024 Blood pressure systolic 122 mm Hg 03/24/2024 Weight 181 lbs 03/24/2024 BMI 34.20 kg/m2 03/24/2024 Encounters Encounter Location Date Provider Diagnosis Alfredo Kearns MD [address] [place] [phone] 03/24/2024 Alfredo Kearns Elevated BUN R79.9 ; Hematuria R31.9 ; Thyroid nodule E04.1 ; Excessive cerumen in left ear canal H61.22 ; Vitamin D deficiency E55.9 ; Essential hypertension I10 ; Pure hypercholesterolemia E78.00 and Depression screening Z13.31 Alfredo Kearns MD [address] [place] [phone] 09/21/2024 Alfredo Kearns Assessments Encounter Date Diagnosis (ICD Code) Assessment Notes Treatment Notes Treatment Clinical Notes Section Notes 03/24/2024 Elevated BUN (ICD-10 - R79.9) was 23 5 years ago. no need to repeat 03/24/2024 Hematuria (ICD-10 - R31.9) resolved 03/24/2024 Thyroid nodule (ICD- 10 - E04.1) no further evaluation 03/24/2024 Excessive cerumen in left ear canal (ICD-10 - H61.22) irrigated with minimal cerumen 03/24/2024 Vitamin D deficiency (ICD-10 - E55.9) stable, will continue current regiment 03/24/2024 Essential hypertensi on (ICD-10 - I10) stable, will continue to monitor 03/24/2024 Pure hypercholesterolemia (ICD-10 - E78.00) stable, will continue current regiment 03/24/2024 Depression screening (ICD-10 - Z13.31) negative screen 03/24/2024 Other THE ORDR WAS GIVEN TO KAYLA, SHE SCHEDULES HER OWN APPT AT [facility] Plan Of Treatment Pending Test Test Name Order Date Electrocardiogram (EKG) 12/09/2015 Electrocardiogram (EKG) 12/21/2016 COMPREHENSIVE HEARING TEST 10/30/2023 MAMMOGRAM DIGITAL BILATERAL SCREEN 03/24 MAMMOGRAM DIGITAL BILATERAL SCREEN 03/22 US thyroid 03/06/2022 MM tomosynthesis screening BI 02/07/2021 Next Appt Details Provider Name:Alfredo Torrez ier, 03/26/2025 11:00:00 AM, [address] [place] [address], [address], [place], [place], [phone], Insurance Providers Payer Name Payer Address Payer Phone Subscriber Number Group Number Insured Name Patient Relationship to Insured Coverage Start Date Coverage End Date MEDICARE NHIC [address] [place] [address] [id number] January Self - patient is the insured [employer] [address] [place], [place] [id number] January Self - patient is the insured Medical (General) History Medical History History ICD Code colonoscopy - 04/05/2005; 09/28 011; Colonoscopy 10/27/[address] Garcia (repeat 5 years) Raynaud phenomenon [facility] S[facility] mri of head 03/17 showed a thyroid nodule Thyroid nodule E04.1 repeat thyroid us no need for further ev aluation
[2025-03-19 10:42] LABS: Hematocrit 39.8 % (37.0-47.0); Hemoglobin 13.2 g/dl (12.0-16.0); Imm Gran Abs Auto 0.03 X10*3/uL (0.00-0.03); Imm Gran Pct Auto 0.3 % (0.0-0.4); Lymphocytes Absolute Auto 1.3 X10*3/uL (1.2-4.9); Mean Corpuscular HGB Conc 33.2 g/dl (31.0-35.0); Mean Corpuscular Hemoglobin 30.7 pg (27.0-33.0); Mean Corpuscular Volume 92.6 fL (80.0-98.0); NRBC Abs Auto 0.000 X10*3/uL (0.0-0.012); NRBC Pct Auto 0.0 /100WBC (0.0-0.2); Platelet Count 175 X10*3/uL (160-400); Red Blood Count 4.30 X10*6/uL (4.20-5.50); White Blood Count 9.0 X10*3/uL (4.8-10.8)
[2025-03-19 11:00] LABS: Appearance Urine Clear; Glucose Urine UA Negative (Negative); PH 7.0 (5.0-9.0); Specific Gravity - Urine 1.015 (1.005-1.025); UMIC TRIGGER UACC YES
[2025-03-19 11:03] LABS: UACC Culture Trigger YES
[2025-03-19 11:17] LABS: Alanine Aminotransferase 24 U/L (0-31); Albumin Level 4.3 g/dL (3.5-5.0); Alkaline Phosphatase 107 U/L (39-117); Anion Gap 13 (12-20); Aspartate Amino Transferase 25 U/L (5-31); Blood Urea Nitrogen 21 mg/dL (9-16); Calcium 9.0 mg/dL (8.4-10.2); Carbon Dioxide 26 mmol/L (22-29); Chloride 102 mmol/L (96-108); Cholesterol 179 mg/dL (<200); Estimated Glomerular Filt Rate 54; HDL Cholesterol 56 mg/dL (>40); Potassium 4.3 mmol/L (3.3-5.1); Sodium 137 mmol/L (135-145); Total Protein 7.0 g/dL (6.5-8.0); Triglycerides 98 mg/dL (<150)
== END 2025-03-19 09:33 | disposition home or self-care (01) ==
LOC: HO.LAB 09:32
PROVIDERS: PCP Internal Medicine; Visit Provider Internal Medicine
DX: I10 Essential (primary) hypertension (principal); E55.9 Vitamin D deficiency, unspecified; E78.00 Pure hypercholesterolemia, unspecified; D72.820 Lymphocytosis (symptomatic)
CPT/HCPCS: 36415; 80053; 80061; 81001; 85025; 87086